=== PATIENT | female | born 1940 | race Caucasian/White ===

== ENCOUNTER 2017-03-20 03:46 | Inpatient (IN) | payer BC ==
[2017-03-20 04:35] LABS: ADD MAN DIFF? NO
[2017-03-20 04:37] LABS: BASOPHILS % 0.2 % (0.0-2.0); EOSINOPHILS # 0.3 10^3/ul (0.0-0.5); EOSINOPHILS % 3.6 % (0.0-7.0); HEMATOCRIT 29.9 % (37.0-47.0); HEMOGLOBIN 9.8 g/dl (12.0-16.0); LYMPHOCYTES # 1.3 10^3/ul (0.8-2.9); LYMPHOCYTES % 15.5 % (15.0-51.0); MEAN CORPUSCULAR HEMOGLOBIN 30.3 pg (29.0-33.0); MEAN CORPUSCULAR HGB CONC 32.8 g/dl (32.0-37.0); MEAN CORPUSCULAR VOLUME 92.6 fl (82.0-101.0); MEAN PLATELET VOLUME 10.3 fl (7.4-10.4); MONOCYTE # 0.5 10^3/ul (0.3-0.9); MONOCYTES % 6.7 % (0.0-11.0); NEUTROPHIL # 5.9 10^3/ul (1.6-7.5); NEUTROPHILS % 73.6 % (39.0-77.0); PLATELET COUNT 198 10^3/UL (140-415); RED BLOOD COUNT 3.23 10^6/ul (4.20-5.40)
[2017-03-20 04:37] LABS: WHITE BLOOD COUNT 8.1 10^3/ul (4.8-10.8)
[2017-03-20 04:55] LABS: ALANINE AMINOTRANSFERASE 42 IU/L (13-69); ALBUMIN/GLOBULIN RATIO 1.02; ALKALINE PHOSPHATASE 139 IU/L (42-121); ANION GAP 18 (8-16); ASPARTATE AMINO TRANSFERASE 28 IU/L (15-46); BILIRUBIN,INDIRECT 0.8 mg/dl (0-1.1); BILIRUBIN,TOTAL 0.8 mg/dl (0.2-1.3); BLOOD UREA NITROGEN 53 mg/dl (7-20); CALCIUM 9.6 mg/dl (8.4-10.2); CARBON DIOXIDE 24 mmol/L (21-31); CHLORIDE 103 mmol/L (97-110); CREATININE 2.59 mg/dl (0.44-1.00); GLUCOSE 138 mg/dl (70-220); POTASSIUM 4.9 mmol/L (3.5-5.1); SODIUM 140 mmol/L (135-144); TOTAL PROTEIN 7.9 g/dl (6.1-8.1)
[2017-03-20 05:07] LABS: B-TYPE NATRIURETIC PEPTIDE 14300 PG/ML (0-125); TROPONIN-I 0.076 ng/ml (0.00-0.12)
[2017-03-20] MEDS ORDERED: ALBUTEROL/IPRATROPIUM (NEB) 3 ML AMP HHN (06:30)
[2017-03-20] MEDS ORDERED: ALBUTEROL HFA 8 GM INHALER INH (06:30)
[2017-03-20] MEDS ORDERED: NACL 0.9% 3 ML SYG IV (06:30)
[2017-03-20] MEDS ORDERED: NITROGLYCERIN (SL) 0.4 MG TAB SL (06:30)
[2017-03-20] MEDS: FUROSEMIDE 20 MG INJ IV ×2 (07:35→21:55)
[2017-03-20] MEDS: PANTOPRAZOLE (EC) 40 MG TAB PO (07:45)
[2017-03-20] MEDS ORDERED: GLUCOSE GEL 15 GRAM TUBE PO (08:30)
[2017-03-20] MEDS ORDERED: GLUCOSE GEL 15 GRAM TUBE BUCCAL (08:30)
[2017-03-20] MEDS ORDERED: DEXTROSE 50% 50 ML SYRINGE IV ×2 (08:30)
[2017-03-20] MEDS ORDERED: GLUCAGON 1 MG INJ IM (08:30)
[2017-03-20 09:33] LABS: CREATINE KINASE 44 IU/L (23-200)
[2017-03-20 09:49] LABS: CK INDEX 2.3; CK-MB 1.03 ng/ml (0.0-2.4)
[2017-03-20] MEDS: INSULIN ASPART [NOVOLOG] 3 ML PEN SC ×3 (11:45→22:25)
[2017-03-20] MEDS: MULTIVITAMINS THERAPEUTIC TAB PO (12:10)
[2017-03-20] MEDS: AZELASTINE 0.05% 6 ML OPH BOTH EYES (12:12)
[2017-03-20] MEDS: FERROUS SULFATE (EC) 325 MG TAB PO ×3 (12:13→21:54)
[2017-03-20] MEDS: predniSONE 20 MG TAB PO (12:13)
[2017-03-20] MEDS: LOSARTAN 50 MG TAB PO (12:14)
[2017-03-20] MEDS: ASPIRIN (EC) 81 MG TAB PO (12:14)
[2017-03-20] MEDS: AMLODIPINE 5 MG TAB PO (12:15)
[2017-03-20] MEDS: ISOSORBIDE DINITRATE 10 MG TAB PO (12:15)
[2017-03-20] MEDS: SERTRALINE 50 MG TAB PO (12:16)
[2017-03-20] MEDS: LEVOFLOXACIN 500MG/D5W (PMX) 100 ML IVPB (12:23)
[2017-03-20 12:24] LABS: CREATINE KINASE 41 IU/L (23-200)
[2017-03-20] MEDS: HEPARIN 5,000 UNIT/0.5 ML VIAL SC ×2 (12:27→22:13)
[2017-03-20 12:36] LABS: CK INDEX 2.5; CK-MB 1.03 ng/ml (0.0-2.4); TROPONIN-I 0.082 ng/ml (0.00-0.12)
[2017-03-20] MEDS: CLOPIDOGREL 75 MG TAB PO (13:53)
[2017-03-20] MEDS: ALBUTEROL/IPRATROPIUM (NEB) 3 ML AMP HHN ×2 (14:00→20:00)
[2017-03-20] MEDS: INSULIN GLARGINE [LANtus] 3 ML PEN SC (22:29)
[2017-03-20] MEDS: ATORVASTATIN 40 MG TAB PO (23:19)
[2017-03-21] MEDS: ACCU-CHEK XX (02:10)
[2017-03-21 06:21] LABS: ADD MAN DIFF? NO
[2017-03-21 06:26] LABS: BASOPHILS % 0.2 % (0.0-2.0); HEMATOCRIT 24.1 % (37.0-47.0); LYMPHOCYTES # 0.6 10^3/ul (0.8-2.9); LYMPHOCYTES % 13.1 % (15.0-51.0); MEAN CORPUSCULAR HEMOGLOBIN 30.5 pg (29.0-33.0); MEAN CORPUSCULAR HGB CONC 33.2 g/dl (32.0-37.0); MEAN PLATELET VOLUME 11.3 fl (7.4-10.4); MONOCYTE # 0.4 10^3/ul (0.3-0.9); MONOCYTES % 8.4 % (0.0-11.0); NEUTROPHIL # 3.7 10^3/ul (1.6-7.5); NEUTROPHILS % 78.1 % (39.0-77.0); PLATELET COUNT 166 10^3/UL (140-415); RED BLOOD COUNT 2.62 10^6/ul (4.20-5.40); RED CELL DISTRIBUTION WIDTH 12.9 % (11.5-14.5)
[2017-03-21 06:26] LABS: WHITE BLOOD COUNT 4.7 10^3/ul (4.8-10.8)
[2017-03-21 06:58] LABS: ALANINE AMINOTRANSFERASE 30 IU/L (13-69); ALBUMIN 3.1 g/dl (3.3-4.9); ALBUMIN/GLOBULIN RATIO 0.93; ALKALINE PHOSPHATASE 85 IU/L (42-121); ANION GAP 16 (8-16); ASPARTATE AMINO TRANSFERASE 19 IU/L (15-46); BILIRUBIN,INDIRECT 0.7 mg/dl (0-1.1); BILIRUBIN,TOTAL 0.7 mg/dl (0.2-1.3); BLOOD UREA NITROGEN 59 mg/dl (7-20); CALCIUM 8.7 mg/dl (8.4-10.2); CARBON DIOXIDE 24 mmol/L (21-31); CHLORIDE 105 mmol/L (97-110); CREATININE 2.84 mg/dl (0.44-1.00); GLUCOSE 174 mg/dl (70-220); MAGNESIUM 2.1 mg/dl (1.7-2.5); POTASSIUM 4.7 mmol/L (3.5-5.1); SODIUM 140 mmol/L (135-144); TOTAL PROTEIN 6.4 g/dl (6.1-8.1)
[2017-03-21] MEDS: PANTOPRAZOLE (EC) 40 MG TAB PO (07:20)
[2017-03-21] MEDS: INSULIN ASPART [NOVOLOG] 3 ML PEN SC ×6 (07:35→21:55)
[2017-03-21] MEDS: LOSARTAN 50 MG TAB PO (08:33)
[2017-03-21] MEDS: FERROUS SULFATE (EC) 325 MG TAB PO ×3 (08:33→21:00)
[2017-03-21] MEDS: ASPIRIN (EC) 81 MG TAB PO (08:33)
[2017-03-21] MEDS: AZELASTINE 0.05% 6 ML OPH BOTH EYES (08:34)
[2017-03-21] MEDS: HEPARIN 5,000 UNIT/0.5 ML VIAL SC ×2 (08:36→21:05)
[2017-03-21] MEDS: predniSONE 20 MG TAB PO (10:14)
[2017-03-21] MEDS: FUROSEMIDE 20 MG INJ IV ×2 (10:14→21:00)
[2017-03-21] MEDS: CLOPIDOGREL 75 MG TAB PO (10:15)
[2017-03-21] MEDS: MULTIVITAMINS THERAPEUTIC TAB PO (10:15)
[2017-03-21] MEDS: AMLODIPINE 5 MG TAB PO (10:15)
[2017-03-21] MEDS: ISOSORBIDE MONONITRATE(SR)30 MG TAB PO (10:15)
[2017-03-21] MEDS: SERTRALINE 50 MG TAB PO (10:15)
[2017-03-21] MEDS: ACETAMINOPHEN 325 MG TAB PO (12:39)
[2017-03-21 15:55] LABS: HEMOGLOBIN 9.3 g/dl (12.0-16.0)
[2017-03-21] MEDS: ALBUTEROL/IPRATROPIUM (NEB) 3 ML AMP HHN (19:59)
[2017-03-21] MEDS: ATORVASTATIN 40 MG TAB PO (20:59)
[2017-03-21] MEDS: INSULIN GLARGINE [LANtus] 3 ML PEN SC (21:03)
[2017-03-21] MEDS: morphine 2 MG INJ IV (21:19)
[2017-03-22] MEDS: ACCU-CHEK XX ×2 (02:17→02:29)
[2017-03-22] MEDS: PANTOPRAZOLE (EC) 40 MG TAB PO (05:28)
[2017-03-22] MEDS: ALBUTEROL/IPRATROPIUM (NEB) 3 ML AMP HHN ×3 (07:58→19:33)
[2017-03-22] MEDS: LEVOFLOXACIN 500MG/D5W (PMX) 100 ML IVPB (08:11)
[2017-03-22] MEDS: AZELASTINE 0.05% 6 ML OPH BOTH EYES (08:11)
[2017-03-22] MEDS: MULTIVITAMINS THERAPEUTIC TAB PO (08:11)
[2017-03-22] MEDS: AMLODIPINE 5 MG TAB PO (08:11)
[2017-03-22] MEDS: CLOPIDOGREL 75 MG TAB PO (08:11)
[2017-03-22] MEDS: FERROUS SULFATE (EC) 325 MG TAB PO ×3 (08:11→20:40)
[2017-03-22] MEDS: SERTRALINE 50 MG TAB PO (08:12)
[2017-03-22] MEDS: FUROSEMIDE 20 MG INJ IV (08:12)
[2017-03-22] MEDS: ISOSORBIDE MONONITRATE(SR)30 MG TAB PO (08:12)
[2017-03-22] MEDS: ASPIRIN (EC) 81 MG TAB PO (08:12)
[2017-03-22] MEDS: HEPARIN 5,000 UNIT/0.5 ML VIAL SC ×2 (08:13→20:41)
[2017-03-22] MEDS: INSULIN ASPART [NOVOLOG] 3 ML PEN SC ×8 (08:18→21:15)
[2017-03-22] MEDS: predniSONE 20 MG TAB PO (08:18)
[2017-03-22] MEDS ORDERED: LOSARTAN 50 MG TAB PO ×2 (09:00)
[2017-03-22 09:40] LABS: ADD MAN DIFF? NO
[2017-03-22 09:44] LABS: WHITE BLOOD COUNT 6.3 10^3/ul (4.8-10.8)
[2017-03-22 09:44] LABS: BASOPHILS % 0.2 % (0.0-2.0); EOSINOPHILS % 0.2 % (0.0-7.0); HEMOGLOBIN 7.8 g/dl (12.0-16.0); LYMPHOCYTES # 1.3 10^3/ul (0.8-2.9); LYMPHOCYTES % 20.3 % (15.0-51.0); MEAN CORPUSCULAR HEMOGLOBIN 31.1 pg (29.0-33.0); MEAN CORPUSCULAR HGB CONC 33.9 g/dl (32.0-37.0); MEAN CORPUSCULAR VOLUME 91.6 fl (82.0-101.0); MEAN PLATELET VOLUME 11.4 fl (7.4-10.4); MONOCYTE # 0.5 10^3/ul (0.3-0.9); NEUTROPHIL # 4.5 10^3/ul (1.6-7.5); NEUTROPHILS % 71.1 % (39.0-77.0); PLATELET COUNT 170 10^3/UL (140-415); RED BLOOD COUNT 2.51 10^6/ul (4.20-5.40); RED CELL DISTRIBUTION WIDTH 12.7 % (11.5-14.5)
[2017-03-22 10:11] LABS: HDL CHOLESTEROL 42 mg/dl (33-92); LDL CHOLESTEROL,CALCULATED 115 mg/dl; TRIGLYCERIDES 65 mg/dl (0-149)
[2017-03-22 10:11] LABS: CHOLESTEROL 170 mg/dl (100-200)
[2017-03-22 10:16] LABS: TROPONIN-I 0.057 ng/ml (0.00-0.12)
[2017-03-22 10:31] LABS: ANION GAP 13 (8-16); BLOOD UREA NITROGEN 68 mg/dl (7-20); CALCIUM 8.5 mg/dl (8.4-10.2); CARBON DIOXIDE 23 mmol/L (21-31); CHLORIDE 104 mmol/L (97-110); CREATININE 2.74 mg/dl (0.44-1.00); GLUCOSE 134 mg/dl (70-220); MAGNESIUM 2.1 mg/dl (1.7-2.5); PHOSPHORUS 4.5 mg/dl (2.5-4.9); POTASSIUM 4.4 mmol/L (3.5-5.1); SODIUM 136 mmol/L (135-144)
[2017-03-22 11:08] LABS: IRON 83 ug/dl (35-150)
[2017-03-22 11:17] LABS: % IRON SATURATION 32 % SAT (22-52); TOTAL IRON BINDING CAPACITY 257 ug/dl (241-421)
[2017-03-22 12:02] LABS: HEMATOCRIT 26.8 % (37.0-47.0)
[2017-03-22] MEDS: FUROSEMIDE 20 MG TAB PO (17:06)
[2017-03-22] MEDS: ATORVASTATIN 40 MG TAB PO (20:40)
[2017-03-22] MEDS: INSULIN GLARGINE [LANtus] 3 ML PEN SC (20:46)
[2017-03-22 21:42] LABS: GLUCOSE 355 mg/dl (70-220)
[2017-03-23] MEDS: GLUCOSE GEL 15 GRAM TUBE PO (00:06)
[2017-03-23] MEDS: ACCU-CHEK XX ×2 (01:26)
[2017-03-23] MEDS: PANTOPRAZOLE (EC) 40 MG TAB PO (05:58)
[2017-03-23] MEDS: FUROSEMIDE 20 MG TAB PO ×2 (06:00→17:21)
[2017-03-23] MEDS: INSULIN ASPART [NOVOLOG] 3 ML PEN SC ×7 (07:49→21:20)
[2017-03-23 08:14] LABS: ADD MAN DIFF? NO
[2017-03-23] MEDS: SERTRALINE 50 MG TAB PO (08:14)
[2017-03-23] MEDS: ISOSORBIDE MONONITRATE(SR)30 MG TAB PO (08:14)
[2017-03-23] MEDS: CLOPIDOGREL 75 MG TAB PO (08:14)
[2017-03-23] MEDS: ASPIRIN (EC) 81 MG TAB PO (08:14)
[2017-03-23] MEDS: AZELASTINE 0.05% 6 ML OPH BOTH EYES (08:14)
[2017-03-23] MEDS: MULTIVITAMINS THERAPEUTIC TAB PO (08:16)
[2017-03-23] MEDS: predniSONE 20 MG TAB PO (08:16)
[2017-03-23 08:18] LABS: BASOPHILS % 0.1 % (0.0-2.0); EOSINOPHILS # 0.1 10^3/ul (0.0-0.5); EOSINOPHILS % 0.9 % (0.0-7.0); HEMOGLOBIN 8.5 g/dl (12.0-16.0); LYMPHOCYTES % 26.5 % (15.0-51.0); MEAN CORPUSCULAR HEMOGLOBIN 30.7 pg (29.0-33.0); MEAN CORPUSCULAR HGB CONC 32.7 g/dl (32.0-37.0); MEAN CORPUSCULAR VOLUME 93.9 fl (82.0-101.0); MONOCYTE # 0.7 10^3/ul (0.3-0.9); NEUTROPHIL # 4.8 10^3/ul (1.6-7.5); NEUTROPHILS % 63.1 % (39.0-77.0); PLATELET COUNT 204 10^3/UL (140-415); RED BLOOD COUNT 2.77 10^6/ul (4.20-5.40); RED CELL DISTRIBUTION WIDTH 12.8 % (11.5-14.5)
[2017-03-23 08:18] LABS: WHITE BLOOD COUNT 7.7 10^3/ul (4.8-10.8)
[2017-03-23] MEDS: HEPARIN 5,000 UNIT/0.5 ML VIAL SC ×2 (08:19→21:18)
[2017-03-23] MEDS: FERROUS SULFATE (EC) 325 MG TAB PO ×3 (08:25→21:15)
[2017-03-23 08:47] LABS: ANION GAP 16 (8-16); BLOOD UREA NITROGEN 82 mg/dl (7-20); CALCIUM 8.8 mg/dl (8.4-10.2); CARBON DIOXIDE 23 mmol/L (21-31); CHLORIDE 106 mmol/L (97-110); MAGNESIUM 2.1 mg/dl (1.7-2.5); PHOSPHORUS 4.5 mg/dl (2.5-4.9); POTASSIUM 4.1 mmol/L (3.5-5.1); SODIUM 141 mmol/L (135-144)
[2017-03-23] MEDS: ALBUTEROL/IPRATROPIUM (NEB) 3 ML AMP HHN ×3 (08:52→20:35)
[2017-03-23 09:01] LABS: GLUCOSE 40 mg/dl (70-220)
[2017-03-23] MEDS: AMLODIPINE 5 MG TAB PO (12:21)
[2017-03-23] MEDS: DOCUSATE SODIUM 100 MG CAP PO (21:13)
[2017-03-23] MEDS: ATORVASTATIN 40 MG TAB PO (21:13)
[2017-03-23] MEDS: INSULIN GLARGINE [LANtus] 3 ML PEN SC (21:14)
[2017-03-23] MEDS: SALMETEROL/FLUTICASONE 250/50 INHA INH (21:18)
[2017-03-24] MEDS: INSULIN ASPART [NOVOLOG] 3 ML PEN SC ×9 (01:57→21:30)
[2017-03-24] MEDS: ACCU-CHEK XX (02:05)
[2017-03-24] MEDS: PANTOPRAZOLE (EC) 40 MG TAB PO (05:42)
[2017-03-24] MEDS: FUROSEMIDE 20 MG TAB PO ×2 (05:43→17:42)
[2017-03-24] MEDS: ALBUTEROL/IPRATROPIUM (NEB) 3 ML AMP HHN ×3 (07:50→19:28)
[2017-03-24 08:41] LABS: ADD MAN DIFF? NO
[2017-03-24 08:47] LABS: BASOPHILS % 0.2 % (0.0-2.0); EOSINOPHILS % 0.5 % (0.0-7.0); HEMATOCRIT 24.8 % (37.0-47.0); HEMOGLOBIN 8.4 g/dl (12.0-16.0); LYMPHOCYTES # 1.5 10^3/ul (0.8-2.9); LYMPHOCYTES % 23.7 % (15.0-51.0); MEAN CORPUSCULAR HGB CONC 33.9 g/dl (32.0-37.0); MEAN CORPUSCULAR VOLUME 91.5 fl (82.0-101.0); MEAN PLATELET VOLUME 11.6 fl (7.4-10.4); MONOCYTE # 0.7 10^3/ul (0.3-0.9); MONOCYTES % 10.4 % (0.0-11.0); NEUTROPHILS % 64.6 % (39.0-77.0); PLATELET COUNT 192 10^3/UL (140-415); RED BLOOD COUNT 2.71 10^6/ul (4.20-5.40); RED CELL DISTRIBUTION WIDTH 13.1 % (11.5-14.5)
[2017-03-24 08:47] LABS: WHITE BLOOD COUNT 6.3 10^3/ul (4.8-10.8)
[2017-03-24] MEDS: FERROUS SULFATE (EC) 325 MG TAB PO ×3 (09:05→20:33)
[2017-03-24] MEDS: SERTRALINE 50 MG TAB PO (09:05)
[2017-03-24] MEDS: ASPIRIN (EC) 81 MG TAB PO (09:05)
[2017-03-24] MEDS: DOCUSATE SODIUM 100 MG CAP PO ×2 (09:05→20:32)
[2017-03-24] MEDS: CLOPIDOGREL 75 MG TAB PO (09:05)
[2017-03-24] MEDS: AZELASTINE 0.05% 6 ML OPH BOTH EYES (09:05)
[2017-03-24] MEDS: AMLODIPINE 5 MG TAB PO (09:06)
[2017-03-24] MEDS: predniSONE 20 MG TAB PO (09:06)
[2017-03-24] MEDS: MULTIVITAMINS THERAPEUTIC TAB PO (09:06)
[2017-03-24] MEDS: SALMETEROL/FLUTICASONE 250/50 INHA INH ×2 (09:06→20:31)
[2017-03-24] MEDS: ISOSORBIDE MONONITRATE(SR)30 MG TAB PO (09:06)
[2017-03-24] MEDS: HEPARIN 5,000 UNIT/0.5 ML VIAL SC ×2 (09:10→20:58)
[2017-03-24] MEDS: LEVOFLOXACIN 250MG/D5W (PMX) 50 ML IVPB (09:22)
[2017-03-24 10:10] LABS: ANION GAP 15 (8-16); BLOOD UREA NITROGEN 94 mg/dl (7-20); CARBON DIOXIDE 22 mmol/L (21-31); CHLORIDE 106 mmol/L (97-110); CREATININE 3.38 mg/dl (0.44-1.00); GLUCOSE 142 mg/dl (70-220); MAGNESIUM 2.1 mg/dl (1.7-2.5); PHOSPHORUS 4.1 mg/dl (2.5-4.9); POTASSIUM 4.1 mmol/L (3.5-5.1); SODIUM 139 mmol/L (135-144)
[2017-03-24] MEDS ORDERED: POLYETHYLENE GLYCOL 17 GM PACKET PO ×2 (15:30→16:00)
[2017-03-24] MEDS: LACTULOSE 30ML CUP PO (16:00)
[2017-03-24] MEDS: ATORVASTATIN 40 MG TAB PO (20:33)
[2017-03-24] MEDS: INSULIN GLARGINE [LANtus] 3 ML PEN SC (20:56)
[2017-03-25] MEDS: ACCU-CHEK XX (01:23)
[2017-03-25 04:51] LABS: SODIUM,URINE RANDOM 66 mmol/L (30-90)
[2017-03-25 04:52] LABS: CREATININE,URINE RANDOM 40.22 mg/dl (20-320); PROTEIN/CREAT RATIO 4.92 RATIO
[2017-03-25 06:10] LABS: ADD MAN DIFF? NO
[2017-03-25 06:12] LABS: EOSINOPHILS % 0.2 % (0.0-7.0); HEMATOCRIT 24.8 % (37.0-47.0); HEMOGLOBIN 8.3 g/dl (12.0-16.0); LYMPHOCYTES # 1.8 10^3/ul (0.8-2.9); LYMPHOCYTES % 27.9 % (15.0-51.0); MEAN CORPUSCULAR HEMOGLOBIN 31.1 pg (29.0-33.0); MEAN CORPUSCULAR HGB CONC 33.5 g/dl (32.0-37.0); MEAN CORPUSCULAR VOLUME 92.9 fl (82.0-101.0); MEAN PLATELET VOLUME 10.7 fl (7.4-10.4); MONOCYTE # 0.6 10^3/ul (0.3-0.9); MONOCYTES % 9.7 % (0.0-11.0); NEUTROPHILS % 61.7 % (39.0-77.0); PLATELET COUNT 199 10^3/UL (140-415); RED BLOOD COUNT 2.67 10^6/ul (4.20-5.40)
[2017-03-25 06:12] LABS: WHITE BLOOD COUNT 6.4 10^3/ul (4.8-10.8)
[2017-03-25] MEDS: PANTOPRAZOLE (EC) 40 MG TAB PO (06:38)
[2017-03-25] MEDS: FUROSEMIDE 20 MG TAB PO ×2 (06:38→17:31)
[2017-03-25 07:01] LABS: MAGNESIUM 2.2 mg/dl (1.7-2.5)
[2017-03-25 07:01] LABS: PHOSPHORUS 4.2 mg/dl (2.5-4.9)
[2017-03-25 07:03] LABS: ALANINE AMINOTRANSFERASE 29 IU/L (13-69); ALBUMIN 3.1 g/dl (3.3-4.9); ALKALINE PHOSPHATASE 74 IU/L (42-121); ANION GAP 14 (8-16); ASPARTATE AMINO TRANSFERASE 24 IU/L (15-46); BILIRUBIN,INDIRECT 0.2 mg/dl (0-1.1); BILIRUBIN,TOTAL 0.2 mg/dl (0.2-1.3); BLOOD UREA NITROGEN 97 mg/dl (7-20); CALCIUM 8.7 mg/dl (8.4-10.2); CARBON DIOXIDE 21 mmol/L (21-31); CHLORIDE 107 mmol/L (97-110); CREATININE 3.07 mg/dl (0.44-1.00); GLUCOSE 93 mg/dl (70-220); POTASSIUM 3.9 mmol/L (3.5-5.1); SODIUM 138 mmol/L (135-144); TOTAL PROTEIN 6.2 g/dl (6.1-8.1)
[2017-03-25] MEDS: INSULIN ASPART [NOVOLOG] 3 ML PEN SC ×7 (07:54→21:00)
[2017-03-25] MEDS: ALBUTEROL/IPRATROPIUM (NEB) 3 ML AMP HHN ×2 (08:08→13:41)
[2017-03-25] MEDS: AZELASTINE 0.05% 6 ML OPH BOTH EYES (09:00)
[2017-03-25] MEDS: SERTRALINE 50 MG TAB PO (09:00)
[2017-03-25] MEDS: predniSONE 10 MG TAB PO (09:00)
[2017-03-25] MEDS: FERROUS SULFATE (EC) 325 MG TAB PO ×3 (09:05→20:50)
[2017-03-25] MEDS: AMLODIPINE 5 MG TAB PO (09:05)
[2017-03-25] MEDS: CLOPIDOGREL 75 MG TAB PO (09:05)
[2017-03-25] MEDS: ISOSORBIDE MONONITRATE(SR)30 MG TAB PO (09:05)
[2017-03-25] MEDS: DOCUSATE SODIUM 100 MG CAP PO ×2 (09:05→20:49)
[2017-03-25] MEDS: MULTIVITAMINS THERAPEUTIC TAB PO (09:05)
[2017-03-25] MEDS: HEPARIN 5,000 UNIT/0.5 ML VIAL SC ×2 (09:07→20:53)
[2017-03-25] MEDS: ASPIRIN (EC) 81 MG TAB PO (09:08)
[2017-03-25] MEDS: SALMETEROL/FLUTICASONE 250/50 INHA INH ×2 (09:10→21:08)
[2017-03-25] MEDS: GLUCOSE GEL 15 GRAM TUBE PO (13:13)
[2017-03-25] MEDS: LEVOFLOXACIN 250 MG TAB PO (17:30)
[2017-03-25] MEDS: ATORVASTATIN 40 MG TAB PO (20:50)
[2017-03-25] MEDS: INSULIN GLARGINE [LANtus] 3 ML PEN SC (20:58)
[2017-03-25] MEDS: LACTOBACILLUS RHAMNOSUS CAP PO (21:08)
[2017-03-26] MEDS: ACCU-CHEK XX (02:00)
[2017-03-26] MEDS: PANTOPRAZOLE (EC) 40 MG TAB PO (05:31)
[2017-03-26] MEDS: FUROSEMIDE 20 MG TAB PO ×2 (05:32→18:14)
[2017-03-26 08:29] LABS: ADD MAN DIFF? NO
[2017-03-26] MEDS: MULTIVITAMINS THERAPEUTIC TAB PO (08:47)
[2017-03-26] MEDS: DOCUSATE SODIUM 100 MG CAP PO ×2 (08:47→20:42)
[2017-03-26] MEDS: FAMOTIDINE 20 MG TAB PO (08:47)
[2017-03-26] MEDS: FERROUS SULFATE (EC) 325 MG TAB PO ×3 (08:47→20:42)
[2017-03-26] MEDS: CLOPIDOGREL 75 MG TAB PO (08:48)
[2017-03-26] MEDS: predniSONE 10 MG TAB PO (08:48)
[2017-03-26] MEDS: LACTOBACILLUS RHAMNOSUS CAP PO ×2 (08:48→20:42)
[2017-03-26] MEDS: ASPIRIN (EC) 81 MG TAB PO (08:48)
[2017-03-26] MEDS: ISOSORBIDE MONONITRATE(SR)30 MG TAB PO (08:49)
[2017-03-26] MEDS: AMLODIPINE 5 MG TAB PO (08:50)
[2017-03-26] MEDS: HEPARIN 5,000 UNIT/0.5 ML VIAL SC (08:51)
[2017-03-26 08:52] LABS: BASOPHILS % 0.1 % (0.0-2.0); EOSINOPHILS # 0.2 10^3/ul (0.0-0.5); EOSINOPHILS % 3.1 % (0.0-7.0); HEMATOCRIT 26.9 % (37.0-47.0); HEMOGLOBIN 9.1 g/dl (12.0-16.0); LYMPHOCYTES # 1.7 10^3/ul (0.8-2.9); LYMPHOCYTES % 23.4 % (15.0-51.0); MEAN CORPUSCULAR HEMOGLOBIN 31.2 pg (29.0-33.0); MEAN CORPUSCULAR HGB CONC 33.8 g/dl (32.0-37.0); MEAN CORPUSCULAR VOLUME 92.1 fl (82.0-101.0); MEAN PLATELET VOLUME 11.1 fl (7.4-10.4); MONOCYTE # 0.6 10^3/ul (0.3-0.9); MONOCYTES % 8.8 % (0.0-11.0); NEUTROPHIL # 4.5 10^3/ul (1.6-7.5); NEUTROPHILS % 64.2 % (39.0-77.0); PLATELET COUNT 231 10^3/UL (140-415); RED BLOOD COUNT 2.92 10^6/ul (4.20-5.40); RED CELL DISTRIBUTION WIDTH 13.3 % (11.5-14.5)
[2017-03-26 08:57] LABS: INR 0.96; PROTIME 12.9 Sec (11.9-14.9)
[2017-03-26] MEDS: SALMETEROL/FLUTICASONE 250/50 INHA INH ×2 (09:00→20:41)
[2017-03-26] MEDS: AZELASTINE 0.05% 6 ML OPH BOTH EYES (09:00)
[2017-03-26] MEDS: INSULIN ASPART [NOVOLOG] 3 ML PEN SC ×8 (09:03→20:50)
[2017-03-26 10:28] LABS: ALANINE AMINOTRANSFERASE 28 IU/L (13-69); ALBUMIN 3.3 g/dl (3.3-4.9); ALBUMIN/GLOBULIN RATIO 0.97; ALKALINE PHOSPHATASE 73 IU/L (42-121); ANION GAP 13 (8-16); ASPARTATE AMINO TRANSFERASE 21 IU/L (15-46); BILIRUBIN,INDIRECT 0.3 mg/dl (0-1.1); BILIRUBIN,TOTAL 0.3 mg/dl (0.2-1.3); BLOOD UREA NITROGEN 99 mg/dl (7-20); CALCIUM 9.2 mg/dl (8.4-10.2); CARBON DIOXIDE 24 mmol/L (21-31); CHLORIDE 106 mmol/L (97-110); CREATININE 3.17 mg/dl (0.44-1.00); GLUCOSE 140 mg/dl (70-220); MAGNESIUM 2.1 mg/dl (1.7-2.5); PHOSPHORUS 4.8 mg/dl (2.5-4.9); POTASSIUM 4.4 mmol/L (3.5-5.1); SODIUM 139 mmol/L (135-144); TOTAL PROTEIN 6.7 g/dl (6.1-8.1)
[2017-03-26] MEDS: ACETAMINOPHEN 325 MG TAB PO (11:32)
[2017-03-26] MEDS: SERTRALINE 50 MG TAB PO (11:32)
[2017-03-26] MEDS: ATORVASTATIN 40 MG TAB PO (20:42)
[2017-03-26] MEDS: INSULIN GLARGINE [LANtus] 3 ML PEN SC (20:44)
[2017-03-27] MEDS: ACCU-CHEK XX (02:00)
[2017-03-27] MEDS: FUROSEMIDE 20 MG TAB PO (05:41)
[2017-03-27] MEDS: PANTOPRAZOLE (EC) 40 MG TAB PO (05:53)
[2017-03-27 08:42] LABS: ADD MAN DIFF? NO; HAAIG REFLEX REFLEX FILED
[2017-03-27] MEDS: INSULIN ASPART [NOVOLOG] 3 ML PEN SC ×7 (08:50→21:05)
[2017-03-27] MEDS: SALMETEROL/FLUTICASONE 250/50 INHA INH ×2 (08:52→21:09)
[2017-03-27] MEDS: LACTOBACILLUS RHAMNOSUS CAP PO ×2 (08:53→21:09)
[2017-03-27] MEDS: DOCUSATE SODIUM 100 MG CAP PO ×2 (08:53→21:11)
[2017-03-27] MEDS: AZELASTINE 0.05% 6 ML OPH BOTH EYES (08:53)
[2017-03-27] MEDS: MULTIVITAMINS THERAPEUTIC TAB PO (08:53)
[2017-03-27] MEDS: FERROUS SULFATE (EC) 325 MG TAB PO ×3 (08:53→21:10)
[2017-03-27] MEDS: FAMOTIDINE 20 MG TAB PO (08:53)
[2017-03-27] MEDS: ISOSORBIDE MONONITRATE(SR)30 MG TAB PO (08:54)
[2017-03-27] MEDS: AMLODIPINE 5 MG TAB PO (08:54)
[2017-03-27] MEDS: SERTRALINE 50 MG TAB PO (08:54)
[2017-03-27 08:55] LABS: WHITE BLOOD COUNT 7.6 10^3/ul (4.8-10.8)
[2017-03-27 08:55] LABS: BASOPHILS % 0.1 % (0.0-2.0); EOSINOPHILS # 0.2 10^3/ul (0.0-0.5); EOSINOPHILS % 2.9 % (0.0-7.0); HEMATOCRIT 26.4 % (37.0-47.0); HEMOGLOBIN 8.9 g/dl (12.0-16.0); LYMPHOCYTES # 1.8 10^3/ul (0.8-2.9); LYMPHOCYTES % 23.7 % (15.0-51.0); MEAN CORPUSCULAR HEMOGLOBIN 30.8 pg (29.0-33.0); MEAN CORPUSCULAR HGB CONC 33.7 g/dl (32.0-37.0); MEAN CORPUSCULAR VOLUME 91.3 fl (82.0-101.0); MEAN PLATELET VOLUME 10.8 fl (7.4-10.4); MONOCYTE # 0.8 10^3/ul (0.3-0.9); MONOCYTES % 10.2 % (0.0-11.0); NEUTROPHIL # 4.7 10^3/ul (1.6-7.5); NEUTROPHILS % 62.7 % (39.0-77.0); PLATELET COUNT 225 10^3/UL (140-415); RED BLOOD COUNT 2.89 10^6/ul (4.20-5.40)
[2017-03-27 09:12] LABS: INR 0.94; PROTIME 12.7 Sec (11.9-14.9)
[2017-03-27 09:13] LABS: ALANINE AMINOTRANSFERASE 25 IU/L (13-69); ALBUMIN 3.3 g/dl (3.3-4.9); ALKALINE PHOSPHATASE 76 IU/L (42-121); ANION GAP 14 (8-16); ASPARTATE AMINO TRANSFERASE 17 IU/L (15-46); BILIRUBIN,INDIRECT 0.2 mg/dl (0-1.1); BILIRUBIN,TOTAL 0.2 mg/dl (0.2-1.3); BLOOD UREA NITROGEN 104 mg/dl (7-20); CARBON DIOXIDE 23 mmol/L (21-31); CHLORIDE 102 mmol/L (97-110); CREATININE 3.03 mg/dl (0.44-1.00); GLUCOSE 148 mg/dl (70-220); PARTIAL THROMBOPLASTIN TIME 25.5 Sec (25.0-35.0); PHOSPHORUS 4.7 mg/dl (2.5-4.9); POTASSIUM 4.4 mmol/L (3.5-5.1); SODIUM 135 mmol/L (135-144); TOTAL PROTEIN 6.6 g/dl (6.1-8.1)
[2017-03-27 09:39] LABS: MAGNESIUM 2.2 mg/dl (1.7-2.5)
[2017-03-27 09:43] LABS: HEPATITIS B SURFACE ANTIGEN NEGATIVE (NEGATIVE)
[2017-03-27 10:00] LABS: HEPATITIS B CORE ANTIBODY NEGATIVE (NEGATIVE); HEPATITIS C VIRAL ANTIBODY NEGATIVE (NEGATIVE)
[2017-03-27] MEDS: LEVOFLOXACIN 250 MG TAB PO (18:01)
[2017-03-27] MEDS: INSULIN GLARGINE [LANtus] 3 ML PEN SC (21:06)
[2017-03-27] MEDS: ATORVASTATIN 40 MG TAB PO (21:09)
[2017-03-28] MEDS: ACCU-CHEK XX (02:00)
[2017-03-28] MEDS: PANTOPRAZOLE (EC) 40 MG TAB PO (06:05)
[2017-03-28 07:23] LABS: ADD MAN DIFF? NO
[2017-03-28 07:28] LABS: BASOPHILS % 0.1 % (0.0-2.0); EOSINOPHILS # 0.3 10^3/ul (0.0-0.5); EOSINOPHILS % 3.9 % (0.0-7.0); HEMATOCRIT 26.7 % (37.0-47.0); HEMOGLOBIN 8.8 g/dl (12.0-16.0); LYMPHOCYTES # 1.3 10^3/ul (0.8-2.9); LYMPHOCYTES % 15.6 % (15.0-51.0); MEAN CORPUSCULAR HEMOGLOBIN 30.3 pg (29.0-33.0); MEAN CORPUSCULAR VOLUME 92.1 fl (82.0-101.0); MEAN PLATELET VOLUME 10.7 fl (7.4-10.4); MONOCYTE # 0.8 10^3/ul (0.3-0.9); MONOCYTES % 9.8 % (0.0-11.0); NEUTROPHIL # 5.9 10^3/ul (1.6-7.5); PLATELET COUNT 197 10^3/UL (140-415); RED CELL DISTRIBUTION WIDTH 13.2 % (11.5-14.5)
[2017-03-28 07:28] LABS: WHITE BLOOD COUNT 8.4 10^3/ul (4.8-10.8)
[2017-03-28] MEDS: INSULIN ASPART [NOVOLOG] 3 ML PEN SC ×7 (08:00→21:38)
[2017-03-28 08:30] LABS: ANION GAP 15 (8-16); BLOOD UREA NITROGEN 104 mg/dl (7-20); CALCIUM 8.9 mg/dl (8.4-10.2); CARBON DIOXIDE 23 mmol/L (21-31); CHLORIDE 103 mmol/L (97-110); CREATININE 2.91 mg/dl (0.44-1.00); GLUCOSE 247 mg/dl (70-220); POTASSIUM 5.1 mmol/L (3.5-5.1); SODIUM 136 mmol/L (135-144)
[2017-03-28] MEDS: AZELASTINE 0.05% 6 ML OPH BOTH EYES (08:57)
[2017-03-28] MEDS: HEPARIN 5,000 UNIT/0.5 ML VIAL SC ×2 (08:57→21:36)
[2017-03-28] MEDS: SALMETEROL/FLUTICASONE 250/50 INHA INH ×2 (08:57→21:42)
[2017-03-28] MEDS: LACTOBACILLUS RHAMNOSUS CAP PO ×2 (09:00→21:32)
[2017-03-28] MEDS: ISOSORBIDE MONONITRATE(SR)30 MG TAB PO (09:00)
[2017-03-28] MEDS: DOCUSATE SODIUM 100 MG CAP PO ×2 (09:00→21:23)
[2017-03-28] MEDS: FERROUS SULFATE (EC) 325 MG TAB PO ×3 (09:00→21:23)
[2017-03-28] MEDS: SERTRALINE 50 MG TAB PO (09:00)
[2017-03-28] MEDS: MULTIVITAMINS THERAPEUTIC TAB PO (09:00)
[2017-03-28] MEDS: FAMOTIDINE 20 MG TAB PO (09:00)
[2017-03-28] MEDS ORDERED: HEPARIN 1000 UNITS/ML 10 ML INJ (10:01)
[2017-03-28] MEDS ORDERED: IODIXANOL LOCM 100 ML BTL (10:01)
[2017-03-28] MEDS ORDERED: SOD CHLORIDE 0.9% 500 ML (10:01)
[2017-03-28] MEDS ORDERED: HEPARIN 1000 UNITS/NS (A-LINE) 1,000 ML (10:01)
[2017-03-28] MEDS ORDERED: FENTAnyl 50 MCG/ML VIAL (10:09)
[2017-03-28] MEDS ORDERED: MIDAZOLAM 1 MG/ML 2 ML INJ (10:09)
[2017-03-28] MEDS ORDERED: ALBUMIN HUMAN 25% 50 ML IV (15:30)
[2017-03-28] MEDS: MANNITOL 25% 50 ML IV (16:48)
[2017-03-28] MEDS: HEPARIN 1000 UNITS/ML 10 ML INJ CATHETER (16:50)
[2017-03-28] MEDS: ATORVASTATIN 40 MG TAB PO (21:22)
[2017-03-28] MEDS: INSULIN GLARGINE [LANtus] 3 ML PEN SC (21:37)
[2017-03-29] MEDS: ACCU-CHEK XX (02:00)
[2017-03-29] MEDS: PANTOPRAZOLE (EC) 40 MG TAB PO (06:39)
[2017-03-29] MEDS: INSULIN ASPART [NOVOLOG] 3 ML PEN SC ×7 (08:00→20:56)
[2017-03-29] MEDS: ISOSORBIDE MONONITRATE(SR)30 MG TAB PO (08:32)
[2017-03-29] MEDS: AZELASTINE 0.05% 6 ML OPH BOTH EYES (08:34)
[2017-03-29] MEDS: SALMETEROL/FLUTICASONE 250/50 INHA INH ×2 (08:34→20:47)
[2017-03-29] MEDS: HEPARIN 5,000 UNIT/0.5 ML VIAL SC ×2 (08:38→20:51)
[2017-03-29] MEDS: SERTRALINE 50 MG TAB PO (08:38)
[2017-03-29] MEDS: DOCUSATE SODIUM 100 MG CAP PO ×2 (08:38→20:47)
[2017-03-29] MEDS: MULTIVITAMINS THERAPEUTIC TAB PO (08:38)
[2017-03-29] MEDS: FAMOTIDINE 20 MG TAB PO (08:38)
[2017-03-29] MEDS: LACTOBACILLUS RHAMNOSUS CAP PO ×2 (08:39→20:47)
[2017-03-29] MEDS: FERROUS SULFATE (EC) 325 MG TAB PO ×3 (08:39→20:47)
[2017-03-29] MEDS: ASPIRIN (EC) 81 MG TAB PO (08:39)
[2017-03-29] MEDS ORDERED: CLOPIDOGREL 75 MG TAB PO (09:00)
[2017-03-29 09:01] LABS: ADD MAN DIFF? NO; BASOPHILS % 0.1 % (0.0-2.0); EOSINOPHILS # 0.3 10^3/ul (0.0-0.5); EOSINOPHILS % 4.6 % (0.0-7.0); HEMOGLOBIN 9.1 g/dl (12.0-16.0); LYMPHOCYTES # 1.4 10^3/ul (0.8-2.9); LYMPHOCYTES % 19.9 % (15.0-51.0); MEAN CORPUSCULAR HEMOGLOBIN 31.1 pg (29.0-33.0); MEAN CORPUSCULAR HGB CONC 33.7 g/dl (32.0-37.0); MEAN CORPUSCULAR VOLUME 92.2 fl (82.0-101.0); MEAN PLATELET VOLUME 10.8 fl (7.4-10.4); MONOCYTE # 0.8 10^3/ul (0.3-0.9); NEUTROPHIL # 4.5 10^3/ul (1.6-7.5); PLATELET COUNT 184 10^3/UL (140-415); RED BLOOD COUNT 2.93 10^6/ul (4.20-5.40); RED CELL DISTRIBUTION WIDTH 13.4 % (11.5-14.5)
[2017-03-29 09:33] LABS: ANION GAP 15 (8-16); BLOOD UREA NITROGEN 54 mg/dl (7-20); CALCIUM 8.3 mg/dl (8.4-10.2); CARBON DIOXIDE 28 mmol/L (21-31); CHLORIDE 99 mmol/L (97-110); GLUCOSE 127 mg/dl (70-220); SODIUM 138 mmol/L (135-144)
[2017-03-29 13:47] LABS: HEMOGLOBIN A1C 7.1 % (0-5.9)
[2017-03-29] MEDS: LEVOFLOXACIN 250 MG TAB PO (17:38)
[2017-03-29] MEDS: EPOETIN 3000 UNITS/1 ML INJ (ESRD) SC (17:39)
[2017-03-29] MEDS: ATORVASTATIN 40 MG TAB PO (20:47)
[2017-03-29] MEDS: INSULIN GLARGINE [LANtus] 3 ML PEN SC (20:52)
[2017-03-29] MEDS: ACETAMINOPHEN 325 MG TAB PO (20:58)
[2017-03-30] MEDS: ZOLPIDEM 5 MG TAB PO
[2017-03-30] MEDS: SOD CHLORIDE 0.9% 500 ML IV (01:27)
[2017-03-30] MEDS: ACCU-CHEK XX (02:00)
[2017-03-30 06:19] LABS: ADD MAN DIFF? NO
[2017-03-30] MEDS: PANTOPRAZOLE (EC) 40 MG TAB PO (06:27)
[2017-03-30 06:32] LABS: BASOPHILS % 0.2 % (0.0-2.0); EOSINOPHILS # 0.3 10^3/ul (0.0-0.5); EOSINOPHILS % 4.4 % (0.0-7.0); HEMOGLOBIN 8.1 g/dl (12.0-16.0); LYMPHOCYTES # 1.6 10^3/ul (0.8-2.9); LYMPHOCYTES % 25.7 % (15.0-51.0); MEAN CORPUSCULAR HEMOGLOBIN 30.8 pg (29.0-33.0); MEAN CORPUSCULAR HGB CONC 32.4 g/dl (32.0-37.0); MEAN CORPUSCULAR VOLUME 95.1 fl (82.0-101.0); MONOCYTE # 0.9 10^3/ul (0.3-0.9); MONOCYTES % 13.6 % (0.0-11.0); NEUTROPHIL # 3.6 10^3/ul (1.6-7.5); NEUTROPHILS % 55.9 % (39.0-77.0); PLATELET COUNT 160 10^3/UL (140-415); RED BLOOD COUNT 2.63 10^6/ul (4.20-5.40); RED CELL DISTRIBUTION WIDTH 13.4 % (11.5-14.5)
[2017-03-30 06:32] LABS: WHITE BLOOD COUNT 6.3 10^3/ul (4.8-10.8)
[2017-03-30 07:06] LABS: ANION GAP 10 (8-16); BLOOD UREA NITROGEN 40 mg/dl (7-20); CALCIUM 8.1 mg/dl (8.4-10.2); CARBON DIOXIDE 29 mmol/L (21-31); CHLORIDE 106 mmol/L (97-110); CREATININE 2.25 mg/dl (0.44-1.00); GLUCOSE 68 mg/dl (70-220); POTASSIUM 4.3 mmol/L (3.5-5.1); SODIUM 141 mmol/L (135-144)
[2017-03-30] MEDS: INSULIN ASPART [NOVOLOG] 3 ML PEN SC ×8 (07:55→22:27)
[2017-03-30] MEDS: GLUCOSE GEL 15 GRAM TUBE PO (08:00)
[2017-03-30] MEDS: AZELASTINE 0.05% 6 ML OPH BOTH EYES (08:37)
[2017-03-30] MEDS: SALMETEROL/FLUTICASONE 250/50 INHA INH ×2 (08:37→22:06)
[2017-03-30] MEDS: MULTIVITAMINS THERAPEUTIC TAB PO (08:38)
[2017-03-30] MEDS: SERTRALINE 50 MG TAB PO (08:38)
[2017-03-30] MEDS: LACTOBACILLUS RHAMNOSUS CAP PO ×2 (08:39→22:00)
[2017-03-30] MEDS: DOCUSATE SODIUM 100 MG CAP PO ×2 (08:39→22:00)
[2017-03-30] MEDS: FERROUS SULFATE (EC) 325 MG TAB PO ×3 (08:39→22:02)
[2017-03-30] MEDS: FAMOTIDINE 20 MG TAB PO (08:39)
[2017-03-30] MEDS: ISOSORBIDE MONONITRATE(SR)30 MG TAB PO (08:44)
[2017-03-30] MEDS: ASPIRIN (EC) 81 MG TAB PO (08:44)
[2017-03-30] MEDS: HEPARIN 5,000 UNIT/0.5 ML VIAL SC ×2 (08:50→22:03)
[2017-03-30] MEDS: MIDODRINE 5 MG TAB PO (11:55)
[2017-03-30] MEDS ORDERED: INSULIN GLARGINE [LANtus] 3 ML PEN SC (21:00)
[2017-03-30] MEDS: ATORVASTATIN 40 MG TAB PO (22:02)
[2017-03-30] MEDS: INSULIN GLARGINE [LANtus] 3 ML PEN SC (22:04)
[2017-03-31] MEDS: ACCU-CHEK XX (02:00)
[2017-03-31 06:18] LABS: ADD MAN DIFF? NO
[2017-03-31] MEDS: PANTOPRAZOLE (EC) 40 MG TAB PO (06:18)
[2017-03-31 06:40] LABS: BASOPHILS % 0.2 % (0.0-2.0); EOSINOPHILS # 0.3 10^3/ul (0.0-0.5); EOSINOPHILS % 4.5 % (0.0-7.0); HEMATOCRIT 23.5 % (37.0-47.0); HEMOGLOBIN 7.8 g/dl (12.0-16.0); LYMPHOCYTES # 1.4 10^3/ul (0.8-2.9); LYMPHOCYTES % 23.8 % (15.0-51.0); MEAN CORPUSCULAR HEMOGLOBIN 31.7 pg (29.0-33.0); MEAN CORPUSCULAR HGB CONC 33.2 g/dl (32.0-37.0); MEAN CORPUSCULAR VOLUME 95.5 fl (82.0-101.0); MEAN PLATELET VOLUME 11.1 fl (7.4-10.4); MONOCYTE # 0.7 10^3/ul (0.3-0.9); MONOCYTES % 12.2 % (0.0-11.0); NEUTROPHIL # 3.4 10^3/ul (1.6-7.5); NEUTROPHILS % 59.1 % (39.0-77.0); PLATELET COUNT 155 10^3/UL (140-415); RED BLOOD COUNT 2.46 10^6/ul (4.20-5.40); RED CELL DISTRIBUTION WIDTH 13.5 % (11.5-14.5)
[2017-03-31 06:40] LABS: WHITE BLOOD COUNT 5.7 10^3/ul (4.8-10.8)
[2017-03-31 07:38] LABS: ANION GAP 14 (8-16); BLOOD UREA NITROGEN 48 mg/dl (7-20); CALCIUM 8.2 mg/dl (8.4-10.2); CARBON DIOXIDE 26 mmol/L (21-31); CHLORIDE 105 mmol/L (97-110); CREATININE 2.39 mg/dl (0.44-1.00); GLUCOSE 127 mg/dl (70-220); POTASSIUM 4.3 mmol/L (3.5-5.1); SODIUM 141 mmol/L (135-144)
[2017-03-31] MEDS: INSULIN ASPART [NOVOLOG] 3 ML PEN SC ×7 (08:00→20:47)
[2017-03-31] MEDS: AZELASTINE 0.05% 6 ML OPH BOTH EYES (08:35)
[2017-03-31] MEDS: MULTIVITAMINS THERAPEUTIC TAB PO (08:35)
[2017-03-31] MEDS: DOCUSATE SODIUM 100 MG CAP PO ×2 (08:36→20:41)
[2017-03-31] MEDS: FAMOTIDINE 20 MG TAB PO (08:36)
[2017-03-31] MEDS: ASPIRIN (EC) 81 MG TAB PO (08:36)
[2017-03-31] MEDS: SERTRALINE 50 MG TAB PO (08:36)
[2017-03-31] MEDS: LACTOBACILLUS RHAMNOSUS CAP PO ×2 (08:36→20:41)
[2017-03-31] MEDS: ISOSORBIDE MONONITRATE(SR)30 MG TAB PO (08:37)
[2017-03-31] MEDS: FERROUS SULFATE (EC) 325 MG TAB PO ×3 (08:37→20:41)
[2017-03-31] MEDS: SALMETEROL/FLUTICASONE 250/50 INHA INH ×2 (08:37→20:42)
[2017-03-31] MEDS: hydrALAzine 20 MG INJ IV (08:38)
[2017-03-31] MEDS: HEPARIN 5,000 UNIT/0.5 ML VIAL SC ×2 (08:47→20:48)
[2017-03-31] MEDS: LEVOFLOXACIN 250 MG TAB PO (17:40)
[2017-03-31] MEDS: ATORVASTATIN 40 MG TAB PO (20:41)
[2017-03-31] MEDS: INSULIN GLARGINE [LANtus] 3 ML PEN SC (20:48)
[2017-04-01] MEDS: ACCU-CHEK XX (02:00)
[2017-04-01] MEDS: PANTOPRAZOLE (EC) 40 MG TAB PO (05:59)
[2017-04-01 06:43] LABS: ADD MAN DIFF? NO
[2017-04-01 06:51] LABS: BASOPHILS % 0.3 % (0.0-2.0); EOSINOPHILS # 0.2 10^3/ul (0.0-0.5); EOSINOPHILS % 3.6 % (0.0-7.0); HEMATOCRIT 24.6 % (37.0-47.0); HEMOGLOBIN 8.1 g/dl (12.0-16.0); LYMPHOCYTES # 1.5 10^3/ul (0.8-2.9); LYMPHOCYTES % 24.9 % (15.0-51.0); MEAN CORPUSCULAR HEMOGLOBIN 31.3 pg (29.0-33.0); MEAN CORPUSCULAR HGB CONC 32.9 g/dl (32.0-37.0); MEAN PLATELET VOLUME 10.6 fl (7.4-10.4); MONOCYTE # 0.6 10^3/ul (0.3-0.9); MONOCYTES % 9.4 % (0.0-11.0); NEUTROPHIL # 3.6 10^3/ul (1.6-7.5); NEUTROPHILS % 61.5 % (39.0-77.0); PLATELET COUNT 154 10^3/UL (140-415); RED BLOOD COUNT 2.59 10^6/ul (4.20-5.40); RED CELL DISTRIBUTION WIDTH 13.4 % (11.5-14.5)
[2017-04-01 06:51] LABS: WHITE BLOOD COUNT 5.9 10^3/ul (4.8-10.8)
[2017-04-01] MEDS: ACETAMINOPHEN 325 MG TAB PO (07:53)
[2017-04-01] MEDS: INSULIN ASPART [NOVOLOG] 3 ML PEN SC ×7 (07:58→21:00)
[2017-04-01 08:05] LABS: ANION GAP 12 (8-16); BLOOD UREA NITROGEN 29 mg/dl (7-20); CALCIUM 8.2 mg/dl (8.4-10.2); CARBON DIOXIDE 28 mmol/L (21-31); CHLORIDE 103 mmol/L (97-110); CREATININE 1.78 mg/dl (0.44-1.00); GLUCOSE 150 mg/dl (70-220); SODIUM 139 mmol/L (135-144)
[2017-04-01] MEDS: LACTOBACILLUS RHAMNOSUS CAP PO ×2 (08:30→21:16)
[2017-04-01] MEDS: DOCUSATE SODIUM 100 MG CAP PO ×2 (08:30→21:16)
[2017-04-01] MEDS: HEPARIN 5,000 UNIT/0.5 ML VIAL SC ×2 (08:30→21:13)
[2017-04-01] MEDS: ISOSORBIDE MONONITRATE(SR)30 MG TAB PO (08:31)
[2017-04-01] MEDS: AZELASTINE 0.05% 6 ML OPH BOTH EYES (08:32)
[2017-04-01] MEDS: MULTIVITAMINS THERAPEUTIC TAB PO (08:32)
[2017-04-01] MEDS: SERTRALINE 50 MG TAB PO (08:32)
[2017-04-01] MEDS: ASPIRIN (EC) 81 MG TAB PO (08:32)
[2017-04-01] MEDS: FAMOTIDINE 20 MG TAB PO (08:32)
[2017-04-01] MEDS: FERROUS SULFATE (EC) 325 MG TAB PO ×3 (08:32→21:14)
[2017-04-01] MEDS: SALMETEROL/FLUTICASONE 250/50 INHA INH ×2 (08:34→21:09)
[2017-04-01] MEDS: EPOETIN 3000 UNITS/1 ML INJ (ESRD) SC (17:39)
[2017-04-01] MEDS: INSULIN GLARGINE [LANtus] 3 ML PEN SC (21:13)
[2017-04-01] MEDS: ATORVASTATIN 40 MG TAB PO (21:14)
[2017-04-02] MEDS: ACCU-CHEK XX (01:19)
[2017-04-02 05:15] LABS: ADD MAN DIFF? NO
[2017-04-02 05:21] LABS: BASOPHILS % 0.4 % (0.0-2.0); EOSINOPHILS # 0.2 10^3/ul (0.0-0.5); EOSINOPHILS % 3.7 % (0.0-7.0); HEMATOCRIT 23.6 % (37.0-47.0); HEMOGLOBIN 7.8 g/dl (12.0-16.0); LYMPHOCYTES # 1.3 10^3/ul (0.8-2.9); LYMPHOCYTES % 23.4 % (15.0-51.0); MEAN CORPUSCULAR HEMOGLOBIN 31.2 pg (29.0-33.0); MEAN CORPUSCULAR HGB CONC 33.1 g/dl (32.0-37.0); MEAN CORPUSCULAR VOLUME 94.4 fl (82.0-101.0); MEAN PLATELET VOLUME 10.6 fl (7.4-10.4); MONOCYTE # 0.5 10^3/ul (0.3-0.9); MONOCYTES % 9.3 % (0.0-11.0); NEUTROPHIL # 3.5 10^3/ul (1.6-7.5); NEUTROPHILS % 62.8 % (39.0-77.0); PLATELET COUNT 157 10^3/UL (140-415); RED CELL DISTRIBUTION WIDTH 13.4 % (11.5-14.5)
[2017-04-02 05:21] LABS: WHITE BLOOD COUNT 5.6 10^3/ul (4.8-10.8)
[2017-04-02] MEDS: PANTOPRAZOLE (EC) 40 MG TAB PO (05:51)
[2017-04-02 05:53] LABS: ANION GAP 12 (8-16); BLOOD UREA NITROGEN 40 mg/dl (7-20); CALCIUM 9.3 mg/dl (8.4-10.2); CARBON DIOXIDE 29 mmol/L (21-31); CHLORIDE 101 mmol/L (97-110); CREATININE 2.35 mg/dl (0.44-1.00); GLUCOSE 176 mg/dl (70-220); MAGNESIUM 2.2 mg/dl (1.7-2.5); PHOSPHORUS 4.6 mg/dl (2.5-4.9); POTASSIUM 4.3 mmol/L (3.5-5.1); SODIUM 138 mmol/L (135-144)
[2017-04-02] MEDS: INSULIN ASPART [NOVOLOG] 3 ML PEN SC ×7 (08:21→21:00)
[2017-04-02] MEDS: HEPARIN 5,000 UNIT/0.5 ML VIAL SC ×2 (08:22→21:02)
[2017-04-02] MEDS: AZELASTINE 0.05% 6 ML OPH BOTH EYES (08:28)
[2017-04-02] MEDS: SALMETEROL/FLUTICASONE 250/50 INHA INH ×2 (08:29→20:56)
[2017-04-02] MEDS: DOCUSATE SODIUM 100 MG CAP PO ×2 (08:30→20:56)
[2017-04-02] MEDS: LACTOBACILLUS RHAMNOSUS CAP PO ×2 (08:30→20:56)
[2017-04-02] MEDS: FERROUS SULFATE (EC) 325 MG TAB PO ×3 (08:30→20:56)
[2017-04-02] MEDS: ISOSORBIDE MONONITRATE(SR)30 MG TAB PO (08:30)
[2017-04-02] MEDS: FAMOTIDINE 20 MG TAB PO (08:30)
[2017-04-02] MEDS: ASPIRIN (EC) 81 MG TAB PO (08:30)
[2017-04-02] MEDS: LISINOPRIL 5 MG TAB PO (08:31)
[2017-04-02] MEDS: SERTRALINE 50 MG TAB PO (08:31)
[2017-04-02] MEDS: MULTIVITAMINS THERAPEUTIC TAB PO (08:31)
[2017-04-02] MEDS: ATORVASTATIN 40 MG TAB PO (20:56)
[2017-04-02] MEDS: INSULIN GLARGINE [LANtus] 3 ML PEN SC (21:02)
[2017-04-03] MEDS: ACCU-CHEK XX (01:57)
[2017-04-03] MEDS: PANTOPRAZOLE (EC) 40 MG TAB PO (05:46)
[2017-04-03 05:57] LABS: ADD MAN DIFF? NO
[2017-04-03 06:03] LABS: WHITE BLOOD COUNT 5.6 10^3/ul (4.8-10.8)
[2017-04-03 06:03] LABS: BASOPHILS % 0.2 % (0.0-2.0); EOSINOPHILS # 0.2 10^3/ul (0.0-0.5); EOSINOPHILS % 3.9 % (0.0-7.0); HEMATOCRIT 25.2 % (37.0-47.0); HEMOGLOBIN 8.2 g/dl (12.0-16.0); LYMPHOCYTES # 1.5 10^3/ul (0.8-2.9); LYMPHOCYTES % 26.8 % (15.0-51.0); MEAN CORPUSCULAR HEMOGLOBIN 31.1 pg (29.0-33.0); MEAN CORPUSCULAR HGB CONC 32.5 g/dl (32.0-37.0); MEAN CORPUSCULAR VOLUME 95.5 fl (82.0-101.0); MEAN PLATELET VOLUME 10.8 fl (7.4-10.4); MONOCYTE # 0.6 10^3/ul (0.3-0.9); MONOCYTES % 10.2 % (0.0-11.0); NEUTROPHIL # 3.3 10^3/ul (1.6-7.5); NEUTROPHILS % 58.5 % (39.0-77.0); PLATELET COUNT 154 10^3/UL (140-415); RED BLOOD COUNT 2.64 10^6/ul (4.20-5.40); RED CELL DISTRIBUTION WIDTH 13.5 % (11.5-14.5)
[2017-04-03 06:34] LABS: ANION GAP 14 (8-16); BLOOD UREA NITROGEN 32 mg/dl (7-20); CALCIUM 8.8 mg/dl (8.4-10.2); CARBON DIOXIDE 31 mmol/L (21-31); CHLORIDE 101 mmol/L (97-110); CREATININE 2.55 mg/dl (0.44-1.00); GLUCOSE 86 mg/dl (70-220); MAGNESIUM 2.1 mg/dl (1.7-2.5); PHOSPHORUS 4.5 mg/dl (2.5-4.9); POTASSIUM 4.4 mmol/L (3.5-5.1); SODIUM 142 mmol/L (135-144)
[2017-04-03] MEDS: INSULIN ASPART [NOVOLOG] 3 ML PEN SC ×7 (08:00→21:00)
[2017-04-03] MEDS: ISOSORBIDE MONONITRATE(SR)30 MG TAB PO (08:29)
[2017-04-03] MEDS: LISINOPRIL 5 MG TAB PO (08:56)
[2017-04-03] MEDS: AZELASTINE 0.05% 6 ML OPH BOTH EYES (09:00)
[2017-04-03] MEDS: SALMETEROL/FLUTICASONE 250/50 INHA INH ×2 (09:00→20:55)
[2017-04-03] MEDS: SERTRALINE 50 MG TAB PO (09:01)
[2017-04-03] MEDS: LACTOBACILLUS RHAMNOSUS CAP PO ×2 (09:01→20:56)
[2017-04-03] MEDS: MULTIVITAMINS THERAPEUTIC TAB PO (09:01)
[2017-04-03] MEDS: ASPIRIN (EC) 81 MG TAB PO (09:01)
[2017-04-03] MEDS: DOCUSATE SODIUM 100 MG CAP PO ×2 (09:01→21:02)
[2017-04-03] MEDS: FERROUS SULFATE (EC) 325 MG TAB PO ×3 (09:01→20:56)
[2017-04-03] MEDS: FAMOTIDINE 20 MG TAB PO (09:02)
[2017-04-03] MEDS: HEPARIN 5,000 UNIT/0.5 ML VIAL SC ×2 (09:11→20:58)
[2017-04-03] MEDS: EPOETIN 3000 UNITS/1 ML INJ (ESRD) SC (17:26)
[2017-04-03] MEDS: ATORVASTATIN 40 MG TAB PO (20:55)
[2017-04-03] MEDS: INSULIN GLARGINE [LANtus] 3 ML PEN SC (20:58)
[2017-04-04] MEDS: ACCU-CHEK XX (02:00)
[2017-04-04] MEDS: PANTOPRAZOLE (EC) 40 MG TAB PO (05:53)
[2017-04-04 06:38] LABS: ADD MAN DIFF? NO
[2017-04-04 06:43] LABS: WHITE BLOOD COUNT 5.6 10^3/ul (4.8-10.8)
[2017-04-04 06:43] LABS: BASOPHILS % 0.2 % (0.0-2.0); EOSINOPHILS # 0.2 10^3/ul (0.0-0.5); EOSINOPHILS % 4.3 % (0.0-7.0); HEMOGLOBIN 8.2 g/dl (12.0-16.0); LYMPHOCYTES # 1.4 10^3/ul (0.8-2.9); LYMPHOCYTES % 25.4 % (15.0-51.0); MEAN CORPUSCULAR HEMOGLOBIN 31.3 pg (29.0-33.0); MEAN CORPUSCULAR HGB CONC 32.8 g/dl (32.0-37.0); MEAN CORPUSCULAR VOLUME 95.4 fl (82.0-101.0); MEAN PLATELET VOLUME 10.3 fl (7.4-10.4); MONOCYTE # 0.5 10^3/ul (0.3-0.9); MONOCYTES % 9.4 % (0.0-11.0); NEUTROPHIL # 3.4 10^3/ul (1.6-7.5); NEUTROPHILS % 60.3 % (39.0-77.0); PLATELET COUNT 150 10^3/UL (140-415); RED BLOOD COUNT 2.62 10^6/ul (4.20-5.40); RED CELL DISTRIBUTION WIDTH 13.2 % (11.5-14.5)
[2017-04-04 07:31] LABS: ANION GAP 17 (8-16); BLOOD UREA NITROGEN 50 mg/dl (7-20); CALCIUM 8.5 mg/dl (8.4-10.2); CARBON DIOXIDE 25 mmol/L (21-31); CHLORIDE 105 mmol/L (97-110); CREATININE 2.45 mg/dl (0.44-1.00); GLUCOSE 138 mg/dl (70-220); MAGNESIUM 2.2 mg/dl (1.7-2.5); PHOSPHORUS 5.1 mg/dl (2.5-4.9); POTASSIUM 4.6 mmol/L (3.5-5.1); SODIUM 142 mmol/L (135-144)
[2017-04-04] MEDS: INSULIN ASPART [NOVOLOG] 3 ML PEN SC ×7 (08:25→21:00)
[2017-04-04] MEDS: DOCUSATE SODIUM 100 MG CAP PO ×2 (08:28→21:01)
[2017-04-04] MEDS: HEPARIN 5,000 UNIT/0.5 ML VIAL SC ×2 (08:28→21:00)
[2017-04-04] MEDS: SERTRALINE 50 MG TAB PO (08:28)
[2017-04-04] MEDS: ASPIRIN (EC) 81 MG TAB PO (08:28)
[2017-04-04] MEDS: FAMOTIDINE 20 MG TAB PO (08:28)
[2017-04-04] MEDS: LACTOBACILLUS RHAMNOSUS CAP PO ×2 (08:29→21:00)
[2017-04-04] MEDS: LISINOPRIL 5 MG TAB PO (08:29)
[2017-04-04] MEDS: FERROUS SULFATE (EC) 325 MG TAB PO ×3 (08:29→21:01)
[2017-04-04] MEDS: MULTIVITAMINS THERAPEUTIC TAB PO (08:29)
[2017-04-04] MEDS: ISOSORBIDE MONONITRATE(SR)30 MG TAB PO (08:30)
[2017-04-04] MEDS: AZELASTINE 0.05% 6 ML OPH BOTH EYES (08:30)
[2017-04-04] MEDS: SALMETEROL/FLUTICASONE 250/50 INHA INH ×2 (08:30→21:03)
[2017-04-04] MEDS: ACETAMINOPHEN 325 MG TAB PO (16:44)
[2017-04-04] MEDS: ATORVASTATIN 40 MG TAB PO (21:00)
[2017-04-04] MEDS: INSULIN GLARGINE [LANtus] 3 ML PEN SC (21:10)
[2017-04-05] MEDS: ACCU-CHEK XX (02:00)
[2017-04-05] MEDS: PANTOPRAZOLE (EC) 40 MG TAB PO (06:02)
[2017-04-05] MEDS: INSULIN ASPART [NOVOLOG] 3 ML PEN SC ×7 (07:44→20:24)
[2017-04-05] MEDS: ACETAMINOPHEN 325 MG TAB PO (08:25)
[2017-04-05] MEDS: AZELASTINE 0.05% 6 ML OPH BOTH EYES (08:26)
[2017-04-05] MEDS: SALMETEROL/FLUTICASONE 250/50 INHA INH ×2 (08:26→20:24)
[2017-04-05] MEDS: FAMOTIDINE 20 MG TAB PO (08:27)
[2017-04-05] MEDS: SERTRALINE 50 MG TAB PO (08:27)
[2017-04-05] MEDS: DOCUSATE SODIUM 100 MG CAP PO ×2 (08:27→20:19)
[2017-04-05] MEDS: MULTIVITAMINS THERAPEUTIC TAB PO (08:27)
[2017-04-05] MEDS: FERROUS SULFATE (EC) 325 MG TAB PO ×3 (08:27→20:19)
[2017-04-05] MEDS: ASPIRIN (EC) 81 MG TAB PO (08:27)
[2017-04-05] MEDS: LACTOBACILLUS RHAMNOSUS CAP PO ×2 (08:27→20:19)
[2017-04-05] MEDS: LISINOPRIL 5 MG TAB PO (08:28)
[2017-04-05] MEDS: ISOSORBIDE MONONITRATE(SR)30 MG TAB PO (08:28)
[2017-04-05] MEDS: HEPARIN 5,000 UNIT/0.5 ML VIAL SC ×2 (08:29→20:21)
[2017-04-05] MEDS: ATORVASTATIN 40 MG TAB PO (20:19)
[2017-04-05] MEDS: INSULIN GLARGINE [LANtus] 3 ML PEN SC (20:22)
[2017-04-05] MEDS: EPOETIN 3000 UNITS/1 ML INJ (ESRD) SC (20:28)
[2017-04-05] MEDS: morphine 2 MG INJ IV (22:15)
[2017-04-06] MEDS: ACCU-CHEK XX (02:21)
[2017-04-06] MEDS: morphine 2 MG INJ IV (02:43)
[2017-04-06] MEDS: PANTOPRAZOLE (EC) 40 MG TAB PO (06:14)
[2017-04-06] MEDS: INSULIN ASPART [NOVOLOG] 3 ML PEN SC ×7 (08:18→20:36)
[2017-04-06] MEDS: SERTRALINE 50 MG TAB PO (08:33)
[2017-04-06] MEDS: SALMETEROL/FLUTICASONE 250/50 INHA INH ×2 (08:33→20:49)
[2017-04-06] MEDS: FAMOTIDINE 20 MG TAB PO (08:33)
[2017-04-06] MEDS: AZELASTINE 0.05% 6 ML OPH BOTH EYES (08:33)
[2017-04-06] MEDS: FERROUS SULFATE (EC) 325 MG TAB PO ×3 (08:33→20:41)
[2017-04-06] MEDS: LACTOBACILLUS RHAMNOSUS CAP PO ×2 (08:33→20:41)
[2017-04-06] MEDS: DOCUSATE SODIUM 100 MG CAP PO ×2 (08:34→20:39)
[2017-04-06] MEDS: ONDANSETRON 4 MG INJ IV (08:34)
[2017-04-06] MEDS: ISOSORBIDE MONONITRATE(SR)30 MG TAB PO (08:34)
[2017-04-06] MEDS: MULTIVITAMINS THERAPEUTIC TAB PO (08:34)
[2017-04-06] MEDS: ASPIRIN (EC) 81 MG TAB PO (08:34)
[2017-04-06] MEDS: LISINOPRIL 5 MG TAB PO (08:34)
[2017-04-06] MEDS: HEPARIN 5,000 UNIT/0.5 ML VIAL SC ×2 (08:35→20:37)
[2017-04-06] MEDS: INSULIN GLARGINE [LANtus] 3 ML PEN SC (20:35)
[2017-04-06] MEDS: ATORVASTATIN 40 MG TAB PO (20:41)
[2017-04-07] MEDS: ACCU-CHEK XX (02:00)
[2017-04-07] MEDS: PANTOPRAZOLE (EC) 40 MG TAB PO (05:14)
[2017-04-07] MEDS: FERROUS SULFATE (EC) 325 MG TAB PO ×2 (08:27→12:09)
[2017-04-07] MEDS: DOCUSATE SODIUM 100 MG CAP PO (08:27)
[2017-04-07] MEDS: SERTRALINE 50 MG TAB PO (08:28)
[2017-04-07] MEDS: LACTOBACILLUS RHAMNOSUS CAP PO (08:28)
[2017-04-07] MEDS: ASPIRIN (EC) 81 MG TAB PO (08:28)
[2017-04-07] MEDS: MULTIVITAMINS THERAPEUTIC TAB PO (08:28)
[2017-04-07] MEDS: FAMOTIDINE 20 MG TAB PO (08:28)
[2017-04-07] MEDS: AZELASTINE 0.05% 6 ML OPH BOTH EYES (08:28)
[2017-04-07] MEDS: SALMETEROL/FLUTICASONE 250/50 INHA INH (08:28)
[2017-04-07] MEDS: ISOSORBIDE MONONITRATE(SR)30 MG TAB PO (08:29)
[2017-04-07] MEDS: LISINOPRIL 5 MG TAB PO (08:30)
[2017-04-07] MEDS: HEPARIN 5,000 UNIT/0.5 ML VIAL SC (08:31)
[2017-04-07] MEDS: INSULIN ASPART [NOVOLOG] 3 ML PEN SC ×6 (08:32→17:40)
[2017-04-07] MEDS: morphine 2 MG INJ IV (10:29)
[2017-04-07] MEDS: ONDANSETRON 4 MG INJ IV (10:29)
== END 2017-04-07 20:29 | disposition home or self-care (01) | DRG 291 ==
LOC: MS4 03-22 04:22 → PP2 04-01 00:05 → E/R 03:46 → MS3 05:54
PROC: 05HM33Z Insertion of Infusion Device into Right Internal Jugular Vein, Percutaneous Approach (ICD-10-PCS; principal; 2017-03-28 09:57)
PROC: 5A1D70Z Performance of Urinary Filtration, Intermittent, Less than 6 Hours Per Day (ICD-10-PCS; 2017-03-28 09:57)
PROC: 5A1D70Z Performance of Urinary Filtration, Intermittent, Less than 6 Hours Per Day (ICD-10-PCS; 2017-03-28 09:57)
PROC: 5A1D70Z Performance of Urinary Filtration, Intermittent, Less than 6 Hours Per Day (ICD-10-PCS; 2017-03-28 09:57)
PROC: 5A1D70Z Performance of Urinary Filtration, Intermittent, Less than 6 Hours Per Day (ICD-10-PCS; 2017-03-28 09:57)
PROC: 5A1D70Z Performance of Urinary Filtration, Intermittent, Less than 6 Hours Per Day (ICD-10-PCS; 2017-03-28 09:57)
DX: I13.2 Hypertensive heart and chronic kidney disease with heart failure and with stage 5 chronic kidney disease, or end stage renal disease (principal); I50.23 Acute on chronic systolic (congestive) heart failure; N17.9 Acute kidney failure, unspecified; I42.9 Cardiomyopathy, unspecified; E11.21 Type 2 diabetes mellitus with diabetic nephropathy; N18.6 End stage renal disease; E11.22 Type 2 diabetes mellitus with diabetic chronic kidney disease; D63.8 Anemia in other chronic diseases classified elsewhere; Z99.2 Dependence on renal dialysis; E78.5 Hyperlipidemia, unspecified; I08.0 Rheumatic disorders of both mitral and aortic valves
CPT/HCPCS: 36415; 71010; 71020; 80048; 80053; 80061; 81003; 82550; 82553; 82570; 82728; 82947; 82962; 83036; 83540; 83735; 83880; 84100; 84155; 84300; 84443; 84484; 85014; 85018; 85025; 85610; 85730; 86704; 86709; 86803; 87340; 87400; 90935; 93005; 94640; 94664; 96372; 96374; 97116; 97162; 97165; 97535; 99285-25; J1940

== ENCOUNTER 2017-04-22 05:23 | Inpatient (IN) | payer BC ==
[2017-04-22 06:49] LABS: ADD MAN DIFF? NO
[2017-04-22 06:56] LABS: WHITE BLOOD COUNT 6.2 10^3/ul (4.8-10.8)
[2017-04-22 06:56] LABS: BASOPHILS % 0.2 % (0.0-2.0); EOSINOPHILS # 0.1 10^3/ul (0.0-0.5); EOSINOPHILS % 1.8 % (0.0-7.0); HEMATOCRIT 30.9 % (37.0-47.0); HEMOGLOBIN 10.1 g/dl (12.0-16.0); LYMPHOCYTES # 1.1 10^3/ul (0.8-2.9); LYMPHOCYTES % 17.4 % (15.0-51.0); MEAN CORPUSCULAR HEMOGLOBIN 32.1 pg (29.0-33.0); MEAN CORPUSCULAR HGB CONC 32.7 g/dl (32.0-37.0); MEAN CORPUSCULAR VOLUME 98.1 fl (82.0-101.0); MEAN PLATELET VOLUME 10.6 fl (7.4-10.4); MONOCYTE # 0.5 10^3/ul (0.3-0.9); MONOCYTES % 8.1 % (0.0-11.0); NEUTROPHIL # 4.5 10^3/ul (1.6-7.5); NEUTROPHILS % 72.2 % (39.0-77.0); PLATELET COUNT 195 10^3/UL (140-415); RED BLOOD COUNT 3.15 10^6/ul (4.20-5.40); RED CELL DISTRIBUTION WIDTH 16.3 % (11.5-14.5)
[2017-04-22 07:12] LABS: ANION GAP 14 (8-16); BLOOD UREA NITROGEN 27 mg/dl (7-20); CALCIUM 9.4 mg/dl (8.4-10.2); CARBON DIOXIDE 27 mmol/L (21-31); CHLORIDE 101 mmol/L (97-110); CREATININE 1.98 mg/dl (0.44-1.00); GLUCOSE 148 mg/dl (70-220); POTASSIUM 4.3 mmol/L (3.5-5.1); SODIUM 138 mmol/L (135-144)
[2017-04-22 07:24] LABS: TROPONIN-I 0.038 ng/ml (0.00-0.12)
[2017-04-22 07:30] LABS: INR 0.91; PROTIME 12.3 Sec (11.9-14.9)
[2017-04-22 07:31] LABS: PARTIAL THROMBOPLASTIN TIME 29.1 Sec (25.0-35.0)
[2017-04-22] MEDS: ASPIRIN 325 MG TAB PO (07:59)
[2017-04-22] MEDS: NITROGLYCERIN (SL) 0.4 MG TAB SL (07:59)
[2017-04-22] MEDS: FUROSEMIDE 40 MG INJ IV ×2 (08:00→17:39)
[2017-04-22] MEDS ORDERED: ACETAMINOPHEN 325 MG TAB PO (09:00)
[2017-04-22] MEDS ORDERED: ONDANSETRON 4 MG INJ IV (09:00)
[2017-04-22] MEDS ORDERED: NITROGLYCERIN 0.3 MG SL (14:30)
[2017-04-22] MEDS ORDERED: GLUCOSE GEL 15 GRAM TUBE PO ×2 (15:30)
[2017-04-22] MEDS ORDERED: DEXTROSE 50% 50 ML SYRINGE IV ×2 (15:30)
[2017-04-22] MEDS ORDERED: GLUCAGON 1 MG INJ IM (15:30)
[2017-04-22] MEDS ORDERED: GLUCOSE GEL 15 GRAM TUBE BUCCAL (15:30)
[2017-04-22] MEDS: DICLOFENAC SODIUM 1% GEL 100 GM TUBE TP ×2 (16:32→21:47)
[2017-04-22 17:47] LABS: CREATINE KINASE 30 IU/L (23-200)
[2017-04-22 17:59] LABS: CK INDEX 1.8; CK-MB 0.54 ng/ml (0.0-2.4); TROPONIN-I 0.037 ng/ml (0.00-0.12)
[2017-04-22] MEDS ORDERED: NON-FORMULARY/PATIENT OWN MED (Sitagliptin Phos/Metformin HCl (Janumet 50-500 mg Tablet) 1 PO (21:00)
[2017-04-22] MEDS: ATORVASTATIN 40 MG TAB PO (21:46)
[2017-04-22] MEDS: FERROUS SULFATE (EC) 325 MG TAB PO (21:46)
[2017-04-22] MEDS: INSULIN GLARGINE [LANtus] 3 ML PEN SC (21:48)
[2017-04-22] MEDS: GUAIFENESIN/CODEINE 5ML CUP PO (22:44)
[2017-04-23 00:06] LABS: CREATINE KINASE 29 IU/L (23-200)
[2017-04-23 00:19] LABS: CK-MB 0.58 ng/ml (0.0-2.4); TROPONIN-I 0.043 ng/ml (0.00-0.12)
[2017-04-23] MEDS: ACCU-CHEK XX (02:57)
[2017-04-23] MEDS: FUROSEMIDE 40 MG INJ IV ×2 (06:44→17:28)
[2017-04-23] MEDS ORDERED: metFORMIN 500 MG TAB PO (08:00)
[2017-04-23] MEDS: INSULIN ASPART [NOVOLOG] 3 ML PEN SC ×4 (08:00→22:18)
[2017-04-23 08:31] LABS: ADD MAN DIFF? NO
[2017-04-23 08:35] LABS: BASOPHILS % 0.2 % (0.0-2.0); EOSINOPHILS # 0.1 10^3/ul (0.0-0.5); EOSINOPHILS % 2.4 % (0.0-7.0); HEMOGLOBIN 9.9 g/dl (12.0-16.0); LYMPHOCYTES # 1.5 10^3/ul (0.8-2.9); LYMPHOCYTES % 28.1 % (15.0-51.0); MEAN CORPUSCULAR HEMOGLOBIN 32.4 pg (29.0-33.0); MEAN PLATELET VOLUME 10.7 fl (7.4-10.4); MONOCYTE # 0.5 10^3/ul (0.3-0.9); MONOCYTES % 9.9 % (0.0-11.0); NEUTROPHIL # 3.2 10^3/ul (1.6-7.5); NEUTROPHILS % 59.2 % (39.0-77.0); PLATELET COUNT 203 10^3/UL (140-415); RED BLOOD COUNT 3.06 10^6/ul (4.20-5.40); RED CELL DISTRIBUTION WIDTH 16.4 % (11.5-14.5)
[2017-04-23 08:35] LABS: WHITE BLOOD COUNT 5.4 10^3/ul (4.8-10.8)
[2017-04-23] MEDS: AZELASTINE 0.05% 6 ML OPH BOTH EYES (08:42)
[2017-04-23] MEDS: FERROUS SULFATE (EC) 325 MG TAB PO ×3 (08:42→22:12)
[2017-04-23] MEDS: LINAGLIPTIN 5 MG TABLET PO (08:43)
[2017-04-23] MEDS: ISOSORBIDE MONONITRATE(SR)30 MG TAB PO (08:43)
[2017-04-23] MEDS: ASPIRIN (EC) 81 MG TAB PO (08:43)
[2017-04-23] MEDS: DICLOFENAC SODIUM 1% GEL 100 GM TUBE TP ×4 (08:44→22:12)
[2017-04-23] MEDS: LISINOPRIL 5 MG TAB PO (08:44)
[2017-04-23 08:55] LABS: ALBUMIN 3.7 g/dl (3.3-4.9); ANION GAP 14 (8-16); BLOOD UREA NITROGEN 38 mg/dl (7-20); CALCIUM 9.4 mg/dl (8.4-10.2); CARBON DIOXIDE 30 mmol/L (21-31); CHLORIDE 101 mmol/L (97-110); CREATININE 2.18 mg/dl (0.44-1.00); GLUCOSE 53 mg/dl (70-220); MAGNESIUM 1.9 mg/dl (1.7-2.5); PHOSPHORUS 4.2 mg/dl (2.5-4.9); POTASSIUM 4.5 mmol/L (3.5-5.1); SODIUM 140 mmol/L (135-144)
[2017-04-23] MEDS: GUAIFENESIN/CODEINE 5ML CUP PO (17:30)
[2017-04-23] MEDS: ATORVASTATIN 40 MG TAB PO (22:12)
[2017-04-23] MEDS: INSULIN GLARGINE [LANtus] 3 ML PEN SC (22:17)
[2017-04-23 22:22] LABS: HEPATITIS B SURFACE ANTIGEN NEGATIVE (NEGATIVE)
[2017-04-24] MEDS: INSULIN ASPART [NOVOLOG] 3 ML PEN SC ×7 (00:12→21:30)
[2017-04-24] MEDS: ACCU-CHEK XX (02:59)
[2017-04-24] MEDS: FUROSEMIDE 40 MG INJ IV ×2 (06:05→17:45)
[2017-04-24] MEDS: FERROUS SULFATE (EC) 325 MG TAB PO ×3 (08:26→20:52)
[2017-04-24] MEDS: ASPIRIN (EC) 81 MG TAB PO (08:26)
[2017-04-24] MEDS: LINAGLIPTIN 5 MG TABLET PO (08:27)
[2017-04-24] MEDS: ISOSORBIDE MONONITRATE(SR)30 MG TAB PO (09:00)
[2017-04-24] MEDS: LISINOPRIL 5 MG TAB PO (09:00)
[2017-04-24 09:42] LABS: ADD MAN DIFF? NO
[2017-04-24 09:50] LABS: BASOPHILS % 0.4 % (0.0-2.0); EOSINOPHILS # 0.2 10^3/ul (0.0-0.5); EOSINOPHILS % 2.9 % (0.0-7.0); HEMATOCRIT 34.6 % (37.0-47.0); LYMPHOCYTES # 1.2 10^3/ul (0.8-2.9); LYMPHOCYTES % 23.3 % (15.0-51.0); MEAN CORPUSCULAR HEMOGLOBIN 31.8 pg (29.0-33.0); MEAN CORPUSCULAR HGB CONC 31.8 g/dl (32.0-37.0); MONOCYTE # 0.6 10^3/ul (0.3-0.9); NEUTROPHIL # 3.2 10^3/ul (1.6-7.5); NEUTROPHILS % 61.2 % (39.0-77.0); PLATELET COUNT 222 10^3/UL (140-415); RED BLOOD COUNT 3.46 10^6/ul (4.20-5.40); RED CELL DISTRIBUTION WIDTH 16.3 % (11.5-14.5)
[2017-04-24 09:50] LABS: WHITE BLOOD COUNT 5.2 10^3/ul (4.8-10.8)
[2017-04-24] MEDS: AZELASTINE 0.05% 6 ML OPH BOTH EYES (10:03)
[2017-04-24 10:08] LABS: ALBUMIN 4.2 g/dl (3.3-4.9); ANION GAP 16 (8-16); BLOOD UREA NITROGEN 55 mg/dl (7-20); CARBON DIOXIDE 31 mmol/L (21-31); CHLORIDE 96 mmol/L (97-110); CREATININE 2.93 mg/dl (0.44-1.00); GLUCOSE 109 mg/dl (70-220); PHOSPHORUS 6.7 mg/dl (2.5-4.9); POTASSIUM 5.2 mmol/L (3.5-5.1); SODIUM 138 mmol/L (135-144)
[2017-04-24] MEDS: DICLOFENAC SODIUM 1% GEL 100 GM TUBE TP ×4 (10:13→20:59)
[2017-04-24] MEDS: MIDODRINE 5 MG TAB PO (16:51)
[2017-04-24] MEDS: GUAIFENESIN/CODEINE 5ML CUP PO (16:57)
[2017-04-24] MEDS: PIPER-TAZO 2.25 GM (PMX) 50 ML IVPB (18:09)
[2017-04-24] MEDS: ATORVASTATIN 40 MG TAB PO (20:52)
[2017-04-24] MEDS: INSULIN GLARGINE [LANtus] 3 ML PEN SC (20:54)
[2017-04-25] MEDS: PIPER-TAZO 2.25 GM (PMX) 50 ML IVPB ×4 (00:18→21:07)
[2017-04-25] MEDS: traMADol 50 MG TAB PO (00:30)
[2017-04-25] MEDS: PANTOPRAZOLE 40 MG INJ IV (00:30)
[2017-04-25] MEDS: ONDANSETRON 4 MG INJ IV ×2 (00:30→13:47)
[2017-04-25] MEDS: ZOLPIDEM 5 MG TAB PO (00:30)
[2017-04-25] MEDS: ACCU-CHEK XX (02:00)
[2017-04-25] MEDS: FUROSEMIDE 40 MG INJ IV ×2 (06:16→19:01)
[2017-04-25] MEDS: INSULIN ASPART [NOVOLOG] 3 ML PEN SC ×4 (07:37→21:05)
[2017-04-25] MEDS: FERROUS SULFATE (EC) 325 MG TAB PO ×3 (08:07→21:07)
[2017-04-25] MEDS: AZELASTINE 0.05% 6 ML OPH BOTH EYES (08:08)
[2017-04-25] MEDS: LINAGLIPTIN 5 MG TABLET PO (08:08)
[2017-04-25] MEDS: ASPIRIN (EC) 81 MG TAB PO (08:08)
[2017-04-25] MEDS: ISOSORBIDE MONONITRATE(SR)30 MG TAB PO (08:08)
[2017-04-25] MEDS: DICLOFENAC SODIUM 1% GEL 100 GM TUBE TP ×4 (08:08→21:27)
[2017-04-25] MEDS: LISINOPRIL 5 MG TAB PO (08:08)
[2017-04-25 08:56] LABS: ADD MAN DIFF? NO
[2017-04-25 09:06] LABS: BASOPHILS % 0.4 % (0.0-2.0); EOSINOPHILS # 0.2 10^3/ul (0.0-0.5); EOSINOPHILS % 2.8 % (0.0-7.0); HEMATOCRIT 32.7 % (37.0-47.0); HEMOGLOBIN 10.6 g/dl (12.0-16.0); LYMPHOCYTES # 1.7 10^3/ul (0.8-2.9); MEAN CORPUSCULAR HEMOGLOBIN 32.3 pg (29.0-33.0); MEAN CORPUSCULAR HGB CONC 32.4 g/dl (32.0-37.0); MEAN CORPUSCULAR VOLUME 99.7 fl (82.0-101.0); MEAN PLATELET VOLUME 10.6 fl (7.4-10.4); MONOCYTE # 0.6 10^3/ul (0.3-0.9); MONOCYTES % 11.7 % (0.0-11.0); NEUTROPHIL # 2.8 10^3/ul (1.6-7.5); NEUTROPHILS % 52.9 % (39.0-77.0); PLATELET COUNT 195 10^3/UL (140-415); RED BLOOD COUNT 3.28 10^6/ul (4.20-5.40); RED CELL DISTRIBUTION WIDTH 16.1 % (11.5-14.5)
[2017-04-25 09:06] LABS: WHITE BLOOD COUNT 5.3 10^3/ul (4.8-10.8)
[2017-04-25 09:27] LABS: ALBUMIN 3.7 g/dl (3.3-4.9); ANION GAP 17 (8-16); BLOOD UREA NITROGEN 42 mg/dl (7-20); CALCIUM 8.8 mg/dl (8.4-10.2); CARBON DIOXIDE 28 mmol/L (21-31); CHLORIDE 97 mmol/L (97-110); CREATININE 3.19 mg/dl (0.44-1.00); GLUCOSE 56 mg/dl (70-220); PHOSPHORUS 6.2 mg/dl (2.5-4.9); POTASSIUM 4.9 mmol/L (3.5-5.1); SODIUM 137 mmol/L (135-144)
[2017-04-25] MEDS: SEVELAMER 400 MG TAB PO ×2 (11:23→17:07)
[2017-04-25] MEDS: HEPARIN 5,000 UNIT/0.5 ML VIAL SC ×2 (11:29→21:07)
[2017-04-25] MEDS: MIDODRINE 5 MG TAB PO ×2 (11:39→17:08)
[2017-04-25] MEDS ORDERED: NORepinephrine 8MG/250 ML (PMX 250 ML (16:09)
[2017-04-25] MEDS: NORepinephrine 8MG/250 ML (PMX 250 ML IV (16:50)
[2017-04-25] MEDS: ACETAMINOPHEN 325 MG TAB PO (18:18)
[2017-04-25] MEDS: INSULIN GLARGINE [LANtus] 3 ML PEN SC (21:02)
[2017-04-25] MEDS: ATORVASTATIN 40 MG TAB PO (21:06)
[2017-04-26] MEDS: ACCU-CHEK XX (01:36)
[2017-04-26] MEDS: FUROSEMIDE 40 MG INJ IV (06:07)
[2017-04-26] MEDS: PIPER-TAZO 2.25 GM (PMX) 50 ML IVPB ×3 (06:07→21:45)
[2017-04-26 06:13] LABS: ADD MAN DIFF? NO
[2017-04-26 06:24] LABS: BASOPHILS % 0.3 % (0.0-2.0); EOSINOPHILS # 0.2 10^3/ul (0.0-0.5); EOSINOPHILS % 2.7 % (0.0-7.0); HEMATOCRIT 30.1 % (37.0-47.0); HEMOGLOBIN 10.1 g/dl (12.0-16.0); LYMPHOCYTES # 1.7 10^3/ul (0.8-2.9); LYMPHOCYTES % 25.8 % (15.0-51.0); MEAN CORPUSCULAR HEMOGLOBIN 32.8 pg (29.0-33.0); MEAN CORPUSCULAR HGB CONC 33.6 g/dl (32.0-37.0); MEAN CORPUSCULAR VOLUME 97.7 fl (82.0-101.0); MONOCYTE # 0.8 10^3/ul (0.3-0.9); NEUTROPHIL # 3.7 10^3/ul (1.6-7.5); PLATELET COUNT 193 10^3/UL (140-415); RED BLOOD COUNT 3.08 10^6/ul (4.20-5.40); RED CELL DISTRIBUTION WIDTH 15.4 % (11.5-14.5)
[2017-04-26 06:24] LABS: WHITE BLOOD COUNT 6.4 10^3/ul (4.8-10.8)
[2017-04-26 06:54] LABS: ALBUMIN 3.3 g/dl (3.3-4.9); ANION GAP 16 (8-16); BLOOD UREA NITROGEN 50 mg/dl (7-20); CALCIUM 8.9 mg/dl (8.4-10.2); CARBON DIOXIDE 26 mmol/L (21-31); CHLORIDE 98 mmol/L (97-110); CREATININE 3.67 mg/dl (0.44-1.00); GLUCOSE 133 mg/dl (70-220); MAGNESIUM 2.2 mg/dl (1.7-2.5); PHOSPHORUS 6.8 mg/dl (2.5-4.9); POTASSIUM 5.1 mmol/L (3.5-5.1); SODIUM 135 mmol/L (135-144)
[2017-04-26] MEDS: INSULIN ASPART [NOVOLOG] 3 ML PEN SC ×5 (07:35→21:07)
[2017-04-26] MEDS: ASPIRIN (EC) 81 MG TAB PO (08:58)
[2017-04-26] MEDS: FERROUS SULFATE (EC) 325 MG TAB PO ×3 (08:58→20:55)
[2017-04-26] MEDS: LINAGLIPTIN 5 MG TABLET PO (08:58)
[2017-04-26] MEDS: SEVELAMER 400 MG TAB PO ×3 (08:58→17:38)
[2017-04-26] MEDS: AZELASTINE 0.05% 6 ML OPH BOTH EYES (08:59)
[2017-04-26] MEDS: MIDODRINE 5 MG TAB PO (08:59)
[2017-04-26] MEDS: DICLOFENAC SODIUM 1% GEL 100 GM TUBE TP ×4 (09:00→20:57)
[2017-04-26] MEDS: HEPARIN 5,000 UNIT/0.5 ML VIAL SC ×2 (09:01→20:56)
[2017-04-26 11:27] LABS: B-TYPE NATRIURETIC PEPTIDE 8920 PG/ML (0-125)
[2017-04-26] MEDS: HEPARIN 1000 UNITS/ML 10 ML INJ CATHETER (11:59)
[2017-04-26] MEDS ORDERED: VANCOMYCIN IV PER PHARMACY XX (13:00)
[2017-04-26] MEDS: VANCOMYCIN 1 GM 250 ML IVPB (14:46)
[2017-04-26] MEDS: ATORVASTATIN 40 MG TAB PO (20:55)
[2017-04-26] MEDS: INSULIN GLARGINE [LANtus] 3 ML PEN SC (20:57)
[2017-04-27] MEDS: ACCU-CHEK XX (01:44)
[2017-04-27 04:37] LABS: ADD MAN DIFF? NO
[2017-04-27 04:43] LABS: WHITE BLOOD COUNT 4.3 10^3/ul (4.8-10.8)
[2017-04-27 04:43] LABS: BASOPHILS % 0.5 % (0.0-2.0); EOSINOPHILS # 0.1 10^3/ul (0.0-0.5); EOSINOPHILS % 2.8 % (0.0-7.0); HEMATOCRIT 28.5 % (37.0-47.0); HEMOGLOBIN 9.3 g/dl (12.0-16.0); LYMPHOCYTES # 1.4 10^3/ul (0.8-2.9); LYMPHOCYTES % 32.4 % (15.0-51.0); MEAN CORPUSCULAR HEMOGLOBIN 32.1 pg (29.0-33.0); MEAN CORPUSCULAR HGB CONC 32.6 g/dl (32.0-37.0); MEAN CORPUSCULAR VOLUME 98.3 fl (82.0-101.0); MEAN PLATELET VOLUME 10.9 fl (7.4-10.4); MONOCYTE # 0.6 10^3/ul (0.3-0.9); MONOCYTES % 13.6 % (0.0-11.0); NEUTROPHIL # 2.2 10^3/ul (1.6-7.5); NEUTROPHILS % 50.5 % (39.0-77.0); PLATELET COUNT 177 10^3/UL (140-415); RED CELL DISTRIBUTION WIDTH 15.6 % (11.5-14.5)
[2017-04-27 05:12] LABS: ANION GAP 11 (8-16); BLOOD UREA NITROGEN 22 mg/dl (7-20); CALCIUM 8.8 mg/dl (8.4-10.2); CARBON DIOXIDE 29 mmol/L (21-31); CHLORIDE 105 mmol/L (97-110); CREATININE 2.24 mg/dl (0.44-1.00); GLUCOSE 76 mg/dl (70-220); POTASSIUM 4.3 mmol/L (3.5-5.1); SODIUM 141 mmol/L (135-144)
[2017-04-27 05:15] LABS: CREATINE KINASE 22 IU/L (23-200)
[2017-04-27 05:17] LABS: CK INDEX 1.9; CK-MB 0.42 ng/ml (0.0-2.4); TROPONIN-I 0.065 ng/ml (0.00-0.12)
[2017-04-27] MEDS: FUROSEMIDE 40 MG INJ IV (05:32)
[2017-04-27] MEDS: PIPER-TAZO 2.25 GM (PMX) 50 ML IVPB ×3 (05:32→21:45)
[2017-04-27] MEDS: INSULIN ASPART [NOVOLOG] 3 ML PEN SC ×7 (07:35→20:38)
[2017-04-27] MEDS: AZELASTINE 0.05% 6 ML OPH BOTH EYES (08:48)
[2017-04-27] MEDS: SEVELAMER 400 MG TAB PO ×3 (08:48→17:48)
[2017-04-27] MEDS: DICLOFENAC SODIUM 1% GEL 100 GM TUBE TP ×4 (08:48→20:30)
[2017-04-27] MEDS: FERROUS SULFATE (EC) 325 MG TAB PO ×3 (08:48→20:27)
[2017-04-27] MEDS: ASPIRIN (EC) 81 MG TAB PO (08:48)
[2017-04-27] MEDS: HEPARIN 5,000 UNIT/0.5 ML VIAL SC ×2 (08:50→20:27)
[2017-04-27] MEDS: LINAGLIPTIN 5 MG TABLET PO (08:56)
[2017-04-27 11:35] LABS: IRON 60 ug/dl (35-150)
[2017-04-27 11:44] LABS: % IRON SATURATION 26 % SAT (22-52); TOTAL IRON BINDING CAPACITY 228 ug/dl (241-421)
[2017-04-27] MEDS: COSYNTROPIN 0.25 MG INJ IV (17:26)
[2017-04-27] MEDS: EPOETIN 10000 UNITS/1 ML INJ (ESRD) SC (17:52)
[2017-04-27] MEDS: HYDROCORTISONE 100 MG INJ IV (17:52)
[2017-04-27] MEDS: ATORVASTATIN 40 MG TAB PO (20:27)
[2017-04-27] MEDS: INSULIN GLARGINE [LANtus] 3 ML PEN SC (20:35)
[2017-04-28] MEDS: ACCU-CHEK XX (01:41)
[2017-04-28] MEDS: INSULIN ASPART [NOVOLOG] 3 ML PEN SC ×8 (02:00→21:28)
[2017-04-28] MEDS: FUROSEMIDE 40 MG INJ IV (05:24)
[2017-04-28] MEDS: PIPER-TAZO 2.25 GM (PMX) 50 ML IVPB ×3 (05:24→21:16)
[2017-04-28 05:34] LABS: ADD MAN DIFF? NO
[2017-04-28 05:42] LABS: WHITE BLOOD COUNT 4.2 10^3/ul (4.8-10.8)
[2017-04-28 05:42] LABS: HEMATOCRIT 28.8 % (37.0-47.0); HEMOGLOBIN 9.4 g/dl (12.0-16.0); LYMPHOCYTES # 0.8 10^3/ul (0.8-2.9); LYMPHOCYTES % 18.9 % (15.0-51.0); MEAN CORPUSCULAR HEMOGLOBIN 32.2 pg (29.0-33.0); MEAN CORPUSCULAR HGB CONC 32.6 g/dl (32.0-37.0); MEAN CORPUSCULAR VOLUME 98.6 fl (82.0-101.0); MEAN PLATELET VOLUME 11.2 fl (7.4-10.4); MONOCYTE # 0.2 10^3/ul (0.3-0.9); MONOCYTES % 5.3 % (0.0-11.0); NEUTROPHIL # 3.2 10^3/ul (1.6-7.5); NEUTROPHILS % 75.8 % (39.0-77.0); PLATELET COUNT 170 10^3/UL (140-415); RED BLOOD COUNT 2.92 10^6/ul (4.20-5.40); RED CELL DISTRIBUTION WIDTH 15.4 % (11.5-14.5)
[2017-04-28 06:06] LABS: VANCOMYCIN,RANDOM 11.1 ug/ml
[2017-04-28 06:20] LABS: ALBUMIN 3.2 g/dl (3.3-4.9); ANION GAP 12 (8-16); BLOOD UREA NITROGEN 37 mg/dl (7-20); CALCIUM 9.2 mg/dl (8.4-10.2); CARBON DIOXIDE 27 mmol/L (21-31); CHLORIDE 102 mmol/L (97-110); CREATININE 2.81 mg/dl (0.44-1.00); GLUCOSE 230 mg/dl (70-220); PHOSPHORUS 3.9 mg/dl (2.5-4.9); POTASSIUM 4.3 mmol/L (3.5-5.1); SODIUM 137 mmol/L (135-144)
[2017-04-28] MEDS: SEVELAMER 400 MG TAB PO ×3 (08:03→17:35)
[2017-04-28] MEDS: LINAGLIPTIN 5 MG TABLET PO (08:03)
[2017-04-28] MEDS: ASPIRIN (EC) 81 MG TAB PO (08:03)
[2017-04-28] MEDS: FERROUS SULFATE (EC) 325 MG TAB PO ×3 (08:03→21:15)
[2017-04-28] MEDS: DICLOFENAC SODIUM 1% GEL 100 GM TUBE TP ×4 (08:03→21:16)
[2017-04-28] MEDS: HEPARIN 5,000 UNIT/0.5 ML VIAL SC ×2 (08:06→21:28)
[2017-04-28] MEDS: AZELASTINE 0.05% 6 ML OPH BOTH EYES (09:10)
[2017-04-28] MEDS: SOD CHLORIDE 0.9% 250 ML IV (10:30)
[2017-04-28] MEDS: VANCOMYCIN 1 GM 250 ML IVPB (11:33)
[2017-04-28] MEDS: COSYNTROPIN 0.25 MG INJ IV (12:57)
[2017-04-28] MEDS ORDERED: GUAIFENESIN 20 MG/ML 5ML CUP PO (14:30)
[2017-04-28] MEDS: ATORVASTATIN 40 MG TAB PO (21:15)
[2017-04-28] MEDS: INSULIN GLARGINE [LANtus] 3 ML PEN SC (21:27)
[2017-04-29] MEDS: ACCU-CHEK XX (01:45)
[2017-04-29] MEDS: INSULIN ASPART [NOVOLOG] 3 ML PEN SC ×8 (02:42→21:41)
[2017-04-29] MEDS: FUROSEMIDE 40 MG INJ IV (05:46)
[2017-04-29] MEDS: PIPER-TAZO 2.25 GM (PMX) 50 ML IVPB ×3 (05:46→21:50)
[2017-04-29] MEDS: LINAGLIPTIN 5 MG TABLET PO (08:04)
[2017-04-29] MEDS: SEVELAMER 400 MG TAB PO ×3 (08:04→17:22)
[2017-04-29] MEDS: DICLOFENAC SODIUM 1% GEL 100 GM TUBE TP ×4 (08:05→21:50)
[2017-04-29] MEDS: ASPIRIN (EC) 81 MG TAB PO (08:05)
[2017-04-29] MEDS: FERROUS SULFATE (EC) 325 MG TAB PO ×3 (08:05→21:27)
[2017-04-29] MEDS: AZELASTINE 0.05% 6 ML OPH BOTH EYES (08:21)
[2017-04-29] MEDS: HEPARIN 5,000 UNIT/0.5 ML VIAL SC ×2 (08:21→21:40)
[2017-04-29 09:11] LABS: ADD MAN DIFF? NO
[2017-04-29 09:13] LABS: BASOPHILS % 0.2 % (0.0-2.0); EOSINOPHILS # 0.1 10^3/ul (0.0-0.5); EOSINOPHILS % 2.3 % (0.0-7.0); HEMATOCRIT 28.7 % (37.0-47.0); HEMOGLOBIN 9.5 g/dl (12.0-16.0); LYMPHOCYTES # 1.3 10^3/ul (0.8-2.9); LYMPHOCYTES % 26.8 % (15.0-51.0); MEAN CORPUSCULAR HEMOGLOBIN 32.3 pg (29.0-33.0); MEAN CORPUSCULAR HGB CONC 33.1 g/dl (32.0-37.0); MEAN CORPUSCULAR VOLUME 97.6 fl (82.0-101.0); MEAN PLATELET VOLUME 10.6 fl (7.4-10.4); MONOCYTE # 0.4 10^3/ul (0.3-0.9); MONOCYTES % 8.3 % (0.0-11.0); NEUTROPHILS % 62.2 % (39.0-77.0); PLATELET COUNT 179 10^3/UL (140-415); RED BLOOD COUNT 2.94 10^6/ul (4.20-5.40); RED CELL DISTRIBUTION WIDTH 15.3 % (11.5-14.5)
[2017-04-29 09:13] LABS: WHITE BLOOD COUNT 4.8 10^3/ul (4.8-10.8)
[2017-04-29 09:43] LABS: ANION GAP 16 (8-16); BLOOD UREA NITROGEN 46 mg/dl (7-20); CARBON DIOXIDE 26 mmol/L (21-31); CHLORIDE 102 mmol/L (97-110); GLUCOSE 175 mg/dl (70-220); POTASSIUM 3.7 mmol/L (3.5-5.1); SODIUM 140 mmol/L (135-144)
[2017-04-29] MEDS ORDERED: BENAZEPRIL 10 MG TAB PO (11:00)
[2017-04-29] MEDS: HEPARIN 1000 UNITS/ML 10 ML INJ CATHETER (17:09)
[2017-04-29] MEDS: BENAZEPRIL 20 MG TAB PO (21:28)
[2017-04-29] MEDS: INSULIN GLARGINE [LANtus] 3 ML PEN SC (21:41)
[2017-04-29] MEDS: ATORVASTATIN 40 MG TAB PO (21:50)
[2017-04-30] MEDS: ACCU-CHEK XX (02:00)
[2017-04-30] MEDS: PIPER-TAZO 2.25 GM (PMX) 50 ML IVPB (05:07)
[2017-04-30] MEDS: FUROSEMIDE 40 MG INJ IV (05:07)
[2017-04-30 05:12] LABS: ADD MAN DIFF? NO
[2017-04-30 05:23] LABS: WHITE BLOOD COUNT 4.7 10^3/ul (4.8-10.8)
[2017-04-30 05:23] LABS: BASOPHILS % 0.4 % (0.0-2.0); EOSINOPHILS # 0.1 10^3/ul (0.0-0.5); EOSINOPHILS % 2.6 % (0.0-7.0); HEMATOCRIT 29.5 % (37.0-47.0); HEMOGLOBIN 9.7 g/dl (12.0-16.0); LYMPHOCYTES # 1.5 10^3/ul (0.8-2.9); LYMPHOCYTES % 31.9 % (15.0-51.0); MEAN CORPUSCULAR HEMOGLOBIN 32.1 pg (29.0-33.0); MEAN CORPUSCULAR HGB CONC 32.9 g/dl (32.0-37.0); MEAN CORPUSCULAR VOLUME 97.7 fl (82.0-101.0); MEAN PLATELET VOLUME 10.9 fl (7.4-10.4); MONOCYTE # 0.5 10^3/ul (0.3-0.9); MONOCYTES % 9.6 % (0.0-11.0); NEUTROPHIL # 2.6 10^3/ul (1.6-7.5); NEUTROPHILS % 55.3 % (39.0-77.0); PLATELET COUNT 180 10^3/UL (140-415); RED BLOOD COUNT 3.02 10^6/ul (4.20-5.40)
[2017-04-30 06:15] LABS: ANION GAP 13 (8-16); BLOOD UREA NITROGEN 27 mg/dl (7-20); CALCIUM 8.6 mg/dl (8.4-10.2); CARBON DIOXIDE 28 mmol/L (21-31); CHLORIDE 100 mmol/L (97-110); CREATININE 1.97 mg/dl (0.44-1.00); GLUCOSE 211 mg/dl (70-220); SODIUM 137 mmol/L (135-144)
[2017-04-30] MEDS: IOHEXOL 300MG/ML 150 ML BTL (06:38)
[2017-04-30] MEDS: SOD CHLORIDE 0.9% 100 ML (06:38)
[2017-04-30] MEDS: LINAGLIPTIN 5 MG TABLET PO (08:44)
[2017-04-30] MEDS: SEVELAMER 400 MG TAB PO ×3 (08:45→16:54)
[2017-04-30] MEDS: ASPIRIN (EC) 81 MG TAB PO (08:45)
[2017-04-30] MEDS: BENAZEPRIL 20 MG TAB PO ×2 (08:46→20:43)
[2017-04-30] MEDS: FERROUS SULFATE (EC) 325 MG TAB PO ×3 (08:47→20:43)
[2017-04-30] MEDS: HEPARIN 5,000 UNIT/0.5 ML VIAL SC ×2 (08:54→20:45)
[2017-04-30] MEDS: INSULIN ASPART [NOVOLOG] 3 ML PEN SC ×7 (08:57→20:46)
[2017-04-30] MEDS: DICLOFENAC SODIUM 1% GEL 100 GM TUBE TP ×4 (09:01→20:46)
[2017-04-30] MEDS: AZELASTINE 0.05% 6 ML OPH BOTH EYES (09:02)
[2017-04-30 15:01] LABS: NIL 0.03 IU/mL; QUANTIFERON(R)-TB GOLD NEGATIVE (NEGATIVE); TB-NIL 0.03 IU/mL
[2017-04-30] MEDS: EPOETIN 10000 UNITS/1 ML INJ (ESRD) SC (16:54)
[2017-04-30] MEDS: ATORVASTATIN 40 MG TAB PO (20:43)
[2017-04-30] MEDS: INSULIN GLARGINE [LANtus] 3 ML PEN SC (20:54)
[2017-05-01] MEDS: ACCU-CHEK XX (02:00)
[2017-05-01] MEDS: FUROSEMIDE 40 MG INJ IV (05:46)
[2017-05-01] MEDS: SEVELAMER 400 MG TAB PO ×3 (08:15→16:34)
[2017-05-01] MEDS: LINAGLIPTIN 5 MG TABLET PO (08:15)
[2017-05-01] MEDS: FERROUS SULFATE (EC) 325 MG TAB PO ×3 (08:15→21:16)
[2017-05-01] MEDS: ASPIRIN (EC) 81 MG TAB PO (08:15)
[2017-05-01] MEDS: INSULIN ASPART [NOVOLOG] 3 ML PEN SC ×7 (08:21→21:19)
[2017-05-01] MEDS: HEPARIN 5,000 UNIT/0.5 ML VIAL SC ×2 (08:22→21:17)
[2017-05-01] MEDS: BENAZEPRIL 20 MG TAB PO ×2 (08:29→21:00)
[2017-05-01] MEDS: DICLOFENAC SODIUM 1% GEL 100 GM TUBE TP ×4 (09:59→21:20)
[2017-05-01] MEDS: AZELASTINE 0.05% 6 ML OPH BOTH EYES (10:00)
[2017-05-01] MEDS: SOD CHLORIDE 0.9% 250 ML IV (15:31)
[2017-05-01] MEDS: SOD CHLORIDE 0.9% 500 ML IV (16:03)
[2017-05-01 16:20] LABS: LACTIC ACID 2.1 mmol/L (0.5-2.0)
[2017-05-01] MEDS ORDERED: NORepinephrine 8MG/250 ML (PMX 250 ML (17:19)
[2017-05-01] MEDS: NORepinephrine 8MG/250 ML (PMX 250 ML IV (17:30)
[2017-05-01 19:26] LABS: LACTIC ACID 1.3 mmol/L (0.5-2.0)
[2017-05-01] MEDS ORDERED: NORepinephrine 8MG/250 ML (PMX 250 ML IV (20:20)
[2017-05-01] MEDS: ATORVASTATIN 40 MG TAB PO (21:16)
[2017-05-01] MEDS: INSULIN GLARGINE [LANtus] 3 ML PEN SC (21:20)
[2017-05-02] MEDS: ACCU-CHEK XX (02:41)
[2017-05-02] MEDS: FUROSEMIDE 40 MG INJ IV (06:47)
[2017-05-02 07:24] LABS: ADD MAN DIFF? NO
[2017-05-02 07:29] LABS: WHITE BLOOD COUNT 6.2 10^3/ul (4.8-10.8)
[2017-05-02 07:29] LABS: BASOPHILS % 0.3 % (0.0-2.0); EOSINOPHILS # 0.2 10^3/ul (0.0-0.5); EOSINOPHILS % 3.6 % (0.0-7.0); HEMATOCRIT 28.5 % (37.0-47.0); HEMOGLOBIN 9.3 g/dl (12.0-16.0); LYMPHOCYTES # 1.2 10^3/ul (0.8-2.9); LYMPHOCYTES % 19.8 % (15.0-51.0); MEAN CORPUSCULAR HEMOGLOBIN 32.9 pg (29.0-33.0); MEAN CORPUSCULAR HGB CONC 32.6 g/dl (32.0-37.0); MEAN CORPUSCULAR VOLUME 100.7 fl (82.0-101.0); MONOCYTE # 0.6 10^3/ul (0.3-0.9); MONOCYTES % 9.3 % (0.0-11.0); NEUTROPHIL # 4.1 10^3/ul (1.6-7.5); NEUTROPHILS % 66.7 % (39.0-77.0); PLATELET COUNT 200 10^3/UL (140-415); RED BLOOD COUNT 2.83 10^6/ul (4.20-5.40); RED CELL DISTRIBUTION WIDTH 15.1 % (11.5-14.5)
[2017-05-02] MEDS: INSULIN ASPART [NOVOLOG] 3 ML PEN SC ×6 (07:30→18:37)
[2017-05-02] MEDS: SEVELAMER 400 MG TAB PO ×3 (07:31→18:39)
[2017-05-02 07:59] LABS: MAGNESIUM 2.3 mg/dl (1.7-2.5)
[2017-05-02 07:59] LABS: LACTIC ACID 1.2 mmol/L (0.5-2.0); PHOSPHORUS 6.1 mg/dl (2.5-4.9)
[2017-05-02 08:03] LABS: ALANINE AMINOTRANSFERASE 39 IU/L (13-69); ALBUMIN 2.8 g/dl (3.3-4.9); ALKALINE PHOSPHATASE 92 IU/L (42-121); ANION GAP 15 (8-16); ASPARTATE AMINO TRANSFERASE 23 IU/L (15-46); BLOOD UREA NITROGEN 64 mg/dl (7-20); CARBON DIOXIDE 25 mmol/L (21-31); CHLORIDE 100 mmol/L (97-110); CREATININE 3.87 mg/dl (0.44-1.00); GLUCOSE 83 mg/dl (70-220); POTASSIUM 4.8 mmol/L (3.5-5.1); SODIUM 135 mmol/L (135-144); TOTAL PROTEIN 5.6 g/dl (6.1-8.1)
[2017-05-02] MEDS: ASPIRIN (EC) 81 MG TAB PO (08:44)
[2017-05-02] MEDS: FERROUS SULFATE (EC) 325 MG TAB PO ×2 (08:44→13:05)
[2017-05-02] MEDS: LINAGLIPTIN 5 MG TABLET PO (08:45)
[2017-05-02] MEDS: HEPARIN 5,000 UNIT/0.5 ML VIAL SC (08:46)
[2017-05-02] MEDS: DICLOFENAC SODIUM 1% GEL 100 GM TUBE TP ×3 (08:47→18:39)
[2017-05-02] MEDS: BENAZEPRIL 20 MG TAB PO (09:00)
[2017-05-02] MEDS: AZELASTINE 0.05% 6 ML OPH BOTH EYES (11:10)
[2017-05-02] MEDS: ACETAMINOPHEN 325 MG TAB PO (11:16)
[2017-05-02] MEDS: ALBUMIN HUMAN 25% 100 ML IV (15:16)
[2017-05-02 15:41] LABS: NIL 0.04 IU/mL; QUANTIFERON(R)-TB GOLD NEGATIVE (NEGATIVE); TB-NIL 0.08 IU/mL
[2017-05-02] MEDS: ONDANSETRON 4 MG INJ IV (15:47)
[2017-05-02] MEDS: HEPARIN 1000 UNITS/ML 10 ML INJ CATHETER (18:22)
[2017-05-02] MEDS: EPOETIN 10000 UNITS/1 ML INJ (ESRD) SC (18:38)
== END 2017-05-02 22:15 | disposition home or self-care (01) | DRG 291 ==
LOC: ICU 04-25 16:00 → E/R 05:23 → TEL 04-30 22:50 → MS4 08:39
PROC: 06HM33Z Insertion of Infusion Device into Right Femoral Vein, Percutaneous Approach (ICD-10-PCS; principal; 2017-04-24)
PROC: 5A1D70Z Performance of Urinary Filtration, Intermittent, Less than 6 Hours Per Day (ICD-10-PCS; 2017-04-24)
DX: I13.2 Hypertensive heart and chronic kidney disease with heart failure and with stage 5 chronic kidney disease, or end stage renal disease (principal); I50.43 Acute on chronic combined systolic (congestive) and diastolic (congestive) heart failure; N18.6 End stage renal disease; J96.01 Acute respiratory failure with hypoxia; J18.9 Pneumonia, unspecified organism; I95.89 Other hypotension; E11.22 Type 2 diabetes mellitus with diabetic chronic kidney disease; E11.65 Type 2 diabetes mellitus with hyperglycemia; I42.9 Cardiomyopathy, unspecified; E83.39 Other disorders of phosphorus metabolism; D63.1 Anemia in chronic kidney disease; G90.9 Disorder of the autonomic nervous system, unspecified; R91.1 Solitary pulmonary nodule; M17.0 Bilateral primary osteoarthritis of knee; E78.5 Hyperlipidemia, unspecified; I08.0 Rheumatic disorders of both mitral and aortic valves; E87.5 Hyperkalemia; Z79.4 Long term (current) use of insulin; Z99.2 Dependence on renal dialysis
CPT/HCPCS: 36415; 71045; 71260; 73562; 74176; 80048; 80053; 80069; 80202; 82533; 82550; 82553; 82728; 82962; 83540; 83605; 83735; 83880; 84100; 84484; 85025; 85610; 85730; 86480; 86635; 87040; 87081; 87086; 87340; 90935; 93005; 96372; 96374; 96376; 99285-25

== ENCOUNTER 2017-05-22 05:34 | Inpatient (IN) | payer MEDICARE, OTHER, BC ==
[2017-05-22 07:36] LABS: ADD MAN DIFF? NO
[2017-05-22 07:38] LABS: BASOPHILS % 0.4 % (0.0-2.0); EOSINOPHILS # 0.2 10^3/ul (0.0-0.5); HEMATOCRIT 34.6 % (37.0-47.0); HEMOGLOBIN 11.1 g/dl (12.0-16.0); LYMPHOCYTES # 1.1 10^3/ul (0.8-2.9); LYMPHOCYTES % 19.8 % (15.0-51.0); MEAN CORPUSCULAR HEMOGLOBIN 32.3 pg (29.0-33.0); MEAN CORPUSCULAR HGB CONC 32.1 g/dl (32.0-37.0); MEAN CORPUSCULAR VOLUME 100.6 fl (82.0-101.0); MEAN PLATELET VOLUME 11.9 fl (7.4-10.4); MONOCYTE # 0.5 10^3/ul (0.3-0.9); NEUTROPHIL # 3.8 10^3/ul (1.6-7.5); NEUTROPHILS % 67.4 % (39.0-77.0); PLATELET COUNT 159 10^3/UL (140-415); RED BLOOD COUNT 3.44 10^6/ul (4.20-5.40); RED CELL DISTRIBUTION WIDTH 15.1 % (11.5-14.5)
[2017-05-22 07:38] LABS: WHITE BLOOD COUNT 5.7 10^3/ul (4.8-10.8)
[2017-05-22 07:53] LABS: INR 0.93; PARTIAL THROMBOPLASTIN TIME 30.3 Sec (25.0-35.0); PROTIME 12.5 Sec (11.9-14.9)
[2017-05-22 07:56] LABS: LACTIC ACID 1.1 mmol/L (0.5-2.0)
[2017-05-22 07:57] LABS: ALANINE AMINOTRANSFERASE 35 IU/L (13-69); ALBUMIN 3.5 g/dl (3.3-4.9); ALBUMIN/GLOBULIN RATIO 1.12; ALKALINE PHOSPHATASE 152 IU/L (42-121); ANION GAP 12 (8-16); ASPARTATE AMINO TRANSFERASE 23 IU/L (15-46); BILIRUBIN,INDIRECT 0.5 mg/dl (0-1.1); BILIRUBIN,TOTAL 0.5 mg/dl (0.2-1.3); BLOOD UREA NITROGEN 33 mg/dl (7-20); CALCIUM 8.8 mg/dl (8.4-10.2); CARBON DIOXIDE 28 mmol/L (21-31); CHLORIDE 102 mmol/L (97-110); CREATININE 1.88 mg/dl (0.44-1.00); GLUCOSE 346 mg/dl (70-220); SODIUM 138 mmol/L (135-144); TOTAL PROTEIN 6.6 g/dl (6.1-8.1)
[2017-05-22 08:08] LABS: TROPONIN-I 0.063 ng/ml (0.00-0.12)
[2017-05-22] MEDS: hydrALAzine 20 MG INJ IV (14:19)
[2017-05-22] MEDS ORDERED: HYDROCODONE/APAP (5/325) TAB PO (14:30)
[2017-05-22] MEDS ORDERED: NACL 0.9% 3 ML SYG IV (14:30)
[2017-05-22] MEDS ORDERED: DOCUSATE SODIUM 100 MG CAP PO (14:30)
[2017-05-22] MEDS ORDERED: MAGNESIUM HYDROXIDE 30ML CUP PO (14:30)
[2017-05-22] MEDS ORDERED: BISACODYL 10 MG SUPP PR (14:30)
[2017-05-22] MEDS: NITROGLYCERIN 2% 1 GM OINT PKT TD ×2 (14:48→21:01)
[2017-05-22] MEDS: HYDROCODONE/APAP (5/325) TAB PO (14:51)
[2017-05-22] MEDS: ASPIRIN 81 MG TAB PO (14:53)
[2017-05-22] MEDS: FAMOTIDINE 20 MG TAB PO (14:57)
[2017-05-22] MEDS ORDERED: GLUCOSE GEL 15 GRAM TUBE PO ×2 (15:00)
[2017-05-22] MEDS ORDERED: DEXTROSE 50% 50 ML SYRINGE IV ×2 (15:00)
[2017-05-22] MEDS ORDERED: GLUCAGON 1 MG INJ IM (15:00)
[2017-05-22] MEDS ORDERED: hydrALAzine 20 MG INJ IV (15:00)
[2017-05-22] MEDS ORDERED: GLUCOSE GEL 15 GRAM TUBE BUCCAL (15:00)
[2017-05-22] MEDS: NITROGLYCERIN (SL) 0.4 MG TAB SL ×3 (15:18→15:34)
[2017-05-22] MEDS ORDERED: **FLU VACCINE PREVIOUSLY DISPENSED XX (15:30)
[2017-05-22] MEDS: morphine 2 MG INJ IV ×2 (15:42→21:00)
[2017-05-22] MEDS: INSULIN ASPART [NOVOLOG] 3 ML PEN SC ×3 (17:10→21:00)
[2017-05-22 17:11] LABS: CREATINE KINASE 29 IU/L (23-200)
[2017-05-22 17:25] LABS: CK INDEX 2.6; CK-MB 0.74 ng/ml (0.0-2.4); TROPONIN-I 0.056 ng/ml (0.00-0.12)
[2017-05-22] MEDS: ATORVASTATIN 40 MG TAB PO (21:00)
[2017-05-22] MEDS: ONDANSETRON 4 MG INJ IV (21:00)
[2017-05-22] MEDS: HEPARIN 5,000 UNIT/0.5 ML VIAL SC (21:12)
[2017-05-22] MEDS: ACETAMINOPHEN 325 MG TAB PO (21:15)
[2017-05-22] MEDS: INSULIN GLARGINE [LANtus] 3 ML PEN SC (21:17)
[2017-05-22 22:45] LABS: CREATINE KINASE 32 IU/L (23-200)
[2017-05-22 23:00] LABS: CK INDEX 2.7; CK-MB 0.85 ng/ml (0.0-2.4); TROPONIN-I 0.068 ng/ml (0.00-0.12)
[2017-05-23] MEDS: ACCU-CHEK XX (02:00)
[2017-05-23] MEDS: HEPARIN 1000 UNITS/ML 10 ML INJ CATHETER (03:10)
[2017-05-23] MEDS: ONDANSETRON 4 MG INJ IV ×2 (05:01→15:44)
[2017-05-23] MEDS: NITROGLYCERIN 2% 1 GM OINT PKT TD (05:03)
[2017-05-23] MEDS: morphine 2 MG INJ IV (05:03)
[2017-05-23] MEDS: ACETAMINOPHEN 325 MG TAB PO (05:04)
[2017-05-23 06:35] LABS: ADD MAN DIFF? NO
[2017-05-23 06:41] LABS: BASOPHILS % 0.2 % (0.0-2.0); EOSINOPHILS # 0.1 10^3/ul (0.0-0.5); EOSINOPHILS % 1.7 % (0.0-7.0); HEMATOCRIT 30.1 % (37.0-47.0); HEMOGLOBIN 9.8 g/dl (12.0-16.0); LYMPHOCYTES % 17.4 % (15.0-51.0); MEAN CORPUSCULAR HEMOGLOBIN 32.7 pg (29.0-33.0); MEAN CORPUSCULAR HGB CONC 32.6 g/dl (32.0-37.0); MEAN CORPUSCULAR VOLUME 100.3 fl (82.0-101.0); MEAN PLATELET VOLUME 11.3 fl (7.4-10.4); MONOCYTE # 0.6 10^3/ul (0.3-0.9); MONOCYTES % 9.2 % (0.0-11.0); NEUTROPHIL # 4.3 10^3/ul (1.6-7.5); NEUTROPHILS % 71.3 % (39.0-77.0); PLATELET COUNT 141 10^3/UL (140-415); RED CELL DISTRIBUTION WIDTH 14.9 % (11.5-14.5)
[2017-05-23 07:04] LABS: ALANINE AMINOTRANSFERASE 26 IU/L (13-69); ALBUMIN 3.2 g/dl (3.3-4.9); ALBUMIN/GLOBULIN RATIO 0.94; ALKALINE PHOSPHATASE 96 IU/L (42-121); ANION GAP 7 (8-16); ASPARTATE AMINO TRANSFERASE 21 IU/L (15-46); BILIRUBIN,INDIRECT 0.9 mg/dl (0-1.1); BILIRUBIN,TOTAL 0.9 mg/dl (0.2-1.3); BLOOD UREA NITROGEN 14 mg/dl (7-20); CALCIUM 8.7 mg/dl (8.4-10.2); CARBON DIOXIDE 28 mmol/L (21-31); CHLORIDE 104 mmol/L (97-110); CHOL/HDL RATIO 3.2 RATIO; CHOLESTEROL 197 mg/dl (100-200); CREATININE 1.16 mg/dl (0.44-1.00); GLUCOSE 94 mg/dl (70-220); HDL CHOLESTEROL 60 mg/dl (33-92); MAGNESIUM 1.8 mg/dl (1.7-2.5); POTASSIUM 4.3 mmol/L (3.5-5.1); SODIUM 135 mmol/L (135-144); TOTAL PROTEIN 6.6 g/dl (6.1-8.1); TRIGLYCERIDES 58 mg/dl (0-149)
[2017-05-23 07:05] LABS: LDL CHOLESTEROL,CALCULATED 125 mg/dl
[2017-05-23] MEDS: INSULIN ASPART [NOVOLOG] 3 ML PEN SC ×6 (07:55→17:27)
[2017-05-23 08:07] LABS: HEMOGLOBIN A1C 7.4 % (0-5.9)
[2017-05-23] MEDS: ASPIRIN 81 MG TAB PO (08:53)
[2017-05-23] MEDS: AZELASTINE 0.05% 6 ML OPH BOTH EYES (08:54)
[2017-05-23] MEDS: HEPARIN 5,000 UNIT/0.5 ML VIAL SC (08:57)
[2017-05-23] MEDS: FAMOTIDINE 20 MG TAB PO (15:44)
[2017-05-23] MEDS ORDERED: morphine LIQ (10 MG/5 ML) CUP PO (18:00)
[2017-05-23] MEDS ORDERED: INSULIN GLARGINE [LANtus] 3 ML PEN SC (20:00)
== END 2017-05-23 19:50 | disposition home health service (06) | DRG 304 ==
LOC: E/R 05:34 → TEL 13:17
PROC: 5A1D70Z Performance of Urinary Filtration, Intermittent, Less than 6 Hours Per Day (ICD-10-PCS; principal; 2017-05-22)
DX: I16.0 Hypertensive urgency (principal); N18.6 End stage renal disease; I50.23 Acute on chronic systolic (congestive) heart failure; I42.9 Cardiomyopathy, unspecified; E11.22 Type 2 diabetes mellitus with diabetic chronic kidney disease; E11.65 Type 2 diabetes mellitus with hyperglycemia; I13.2 Hypertensive heart and chronic kidney disease with heart failure and with stage 5 chronic kidney disease, or end stage renal disease; R91.1 Solitary pulmonary nodule; I70.8 Atherosclerosis of other arteries; Z99.2 Dependence on renal dialysis; Z79.4 Long term (current) use of insulin; Z79.84 Long term (current) use of oral hypoglycemic drugs
CPT/HCPCS: 36415; 71045; 80053; 80061; 82550; 82553; 82962; 83036; 83605; 83735; 84484; 85025; 85610; 85730; 87040; 87081; 90935; 93005; 93308; 93923; 96374; 99285-25

== ENCOUNTER 2017-06-21 10:29 | Observation (INO) | payer MEDICARE, OTHER ==
[2017-06-21 12:48] LABS: ADD MAN DIFF? NO
[2017-06-21 12:54] LABS: WHITE BLOOD COUNT 5.8 10^3/ul (4.8-10.8)
[2017-06-21 12:54] LABS: BASOPHILS % 0.2 % (0.0-2.0); EOSINOPHILS # 0.1 10^3/ul (0.0-0.5); EOSINOPHILS % 1.6 % (0.0-7.0); HEMATOCRIT 31.3 % (37.0-47.0); HEMOGLOBIN 10.2 g/dl (12.0-16.0); LYMPHOCYTES # 0.7 10^3/ul (0.8-2.9); LYMPHOCYTES % 11.7 % (15.0-51.0); MEAN CORPUSCULAR HEMOGLOBIN 31.3 pg (29.0-33.0); MEAN CORPUSCULAR HGB CONC 32.6 g/dl (32.0-37.0); MEAN PLATELET VOLUME 11.6 fl (7.4-10.4); MONOCYTE # 0.3 10^3/ul (0.3-0.9); MONOCYTES % 5.7 % (0.0-11.0); NEUTROPHIL # 4.7 10^3/ul (1.6-7.5); NEUTROPHILS % 80.5 % (39.0-77.0); PLATELET COUNT 185 10^3/UL (140-415); RED BLOOD COUNT 3.26 10^6/ul (4.20-5.40); RED CELL DISTRIBUTION WIDTH 14.1 % (11.5-14.5)
[2017-06-21 12:57] LABS: INR 0.97; PARTIAL THROMBOPLASTIN TIME 29.2 Sec (25.0-35.0)
[2017-06-21 13:00] LABS: ANION GAP 17 (8-16); BLOOD UREA NITROGEN 51 mg/dl (7-20); CALCIUM 8.6 mg/dl (8.4-10.2); CARBON DIOXIDE 26 mmol/L (21-31); CHLORIDE 104 mmol/L (97-110); CREATININE 2.24 mg/dl (0.44-1.00); GLUCOSE 145 mg/dl (70-220); POTASSIUM 5.3 mmol/L (3.5-5.1); SODIUM 142 mmol/L (135-144)
[2017-06-21] MEDS: ONDANSETRON 4 MG INJ IV (13:05)
[2017-06-21] MEDS: morphine 4 MG/ML VIAL IV (13:05)
[2017-06-21] MEDS: ASPIRIN 81 MG TAB PO (13:05)
[2017-06-21 13:11] LABS: TROPONIN-I 0.051 ng/ml (0.00-0.12)
[2017-06-21] MEDS ORDERED: ACETAMINOPHEN 325 MG TAB PO (15:00)
[2017-06-21] MEDS ORDERED: ONDANSETRON 4 MG INJ IV (15:00)
[2017-06-21] MEDS ORDERED: GLUCOSE GEL 15 GRAM TUBE BUCCAL (15:30)
[2017-06-21] MEDS ORDERED: GLUCAGON 1 MG INJ IM (15:30)
[2017-06-21] MEDS ORDERED: NACL 0.9% 3 ML SYG IV (15:30)
[2017-06-21] MEDS ORDERED: DEXTROSE 50% 50 ML SYRINGE IV ×2 (15:30)
[2017-06-21] MEDS ORDERED: GLUCOSE GEL 15 GRAM TUBE PO (15:30)
[2017-06-21] MEDS: NA POLYST SULFON 15 GM/60 ML BTL PO (17:46)
[2017-06-21] MEDS: LINAGLIPTIN 5 MG TABLET PO (17:46)
[2017-06-21] MEDS: INSULIN ASPART [NOVOLOG] 3 ML PEN SC ×2 (17:48→23:46)
[2017-06-21 19:51] LABS: CREATINE KINASE 29 IU/L (23-200)
[2017-06-21 20:38] LABS: CK INDEX 2.3; CK-MB 0.66 ng/ml (0.0-2.4)
[2017-06-21] MEDS: ATORVASTATIN 80 MG TAB PO (23:45)
[2017-06-21] MEDS: OXYCODONE/ACETAMINOPHEN (5/325) TAB PO (23:47)
[2017-06-21] MEDS: HEPARIN 5,000 UNIT/0.5 ML VIAL SC (23:54)
[2017-06-22] MEDS: INSULIN GLARGINE [LANtus] 3 ML PEN SC (00:07)
[2017-06-22 01:05] LABS: CREATINE KINASE 34 IU/L (23-200)
[2017-06-22 01:17] LABS: CK INDEX 2.8; CK-MB 0.95 ng/ml (0.0-2.4); TROPONIN-I 0.063 ng/ml (0.00-0.12)
[2017-06-22] MEDS: ACCU-CHEK XX (02:00)
[2017-06-22] MEDS: HEPARIN 5,000 UNIT/0.5 ML VIAL SC ×2 (06:21→15:06)
[2017-06-22 07:50] LABS: ANION GAP 15 (8-16); BLOOD UREA NITROGEN 52 mg/dl (7-20); CALCIUM 8.3 mg/dl (8.4-10.2); CARBON DIOXIDE 26 mmol/L (21-31); CHLORIDE 109 mmol/L (97-110); CREATININE 2.26 mg/dl (0.44-1.00); GLUCOSE 60 mg/dl (70-220); POTASSIUM 4.5 mmol/L (3.5-5.1); SODIUM 145 mmol/L (135-144)
[2017-06-22] MEDS: INSULIN ASPART [NOVOLOG] 3 ML PEN SC ×2 (08:00→11:56)
[2017-06-22] MEDS: GLUCOSE GEL 15 GRAM TUBE PO (08:36)
[2017-06-22] MEDS: ASPIRIN (EC) 81 MG TAB PO (09:17)
[2017-06-22] MEDS: CHOLECALCIFEROL 1,000 UNIT TAB PO (09:18)
[2017-06-22] MEDS: ISOSORBIDE MONONITRATE(SR)30 MG TAB PO (09:19)
[2017-06-22] MEDS: LINAGLIPTIN 5 MG TABLET PO (09:20)
[2017-06-22] MEDS: AZELASTINE 0.05% 6 ML OPH BOTH EYES (11:44)
== END 2017-06-22 16:42 | disposition home or self-care (01) ==
LOC: E/R 10:29 → TEL 14:58
DX: R07.89 Other chest pain (principal); R10.31 Right lower quadrant pain; I12.9 Hypertensive chronic kidney disease with stage 1 through stage 4 chronic kidney disease, or unspecified chronic kidney disease; N18.9 Chronic kidney disease, unspecified; I50.9 Heart failure, unspecified; E78.5 Hyperlipidemia, unspecified; E11.9 Type 2 diabetes mellitus without complications; Z79.4 Long term (current) use of insulin; R91.1 Solitary pulmonary nodule; I77.1 Stricture of artery; J43.9 Emphysema, unspecified
CPT/HCPCS: 36415; 71045; 80048; 82550; 82553; 82962; 84484; 85025; 85610; 85730; 93005; 96374; 96375; 99285-25; G0378

== ENCOUNTER 2017-07-23 00:40 | Emergency (ER) | payer MEDICARE, OTHER ==
[2017-07-23 02:19] LABS: ADD MAN DIFF? NO
[2017-07-23 02:22] LABS: WHITE BLOOD COUNT 5.3 10^3/ul (4.8-10.8)
[2017-07-23 02:22] LABS: BASOPHILS % 0.2 % (0.0-2.0); EOSINOPHILS # 0.2 10^3/ul (0.0-0.5); HEMOGLOBIN 8.8 g/dl (12.0-16.0); LYMPHOCYTES # 1.2 10^3/ul (0.8-2.9); LYMPHOCYTES % 22.8 % (15.0-51.0); MEAN CORPUSCULAR HEMOGLOBIN 30.6 pg (29.0-33.0); MEAN CORPUSCULAR HGB CONC 32.6 g/dl (32.0-37.0); MEAN CORPUSCULAR VOLUME 93.8 fl (82.0-101.0); MEAN PLATELET VOLUME 11.8 fl (7.4-10.4); MONOCYTE # 0.6 10^3/ul (0.3-0.9); MONOCYTES % 11.8 % (0.0-11.0); NEUTROPHIL # 3.3 10^3/ul (1.6-7.5); NEUTROPHILS % 61.8 % (39.0-77.0); PLATELET COUNT 170 10^3/UL (140-415); RED BLOOD COUNT 2.88 10^6/ul (4.20-5.40); RED CELL DISTRIBUTION WIDTH 14.1 % (11.5-14.5)
[2017-07-23] MEDS: ONDANSETRON 4 MG INJ IV (02:25)
[2017-07-23] MEDS: morphine 4 MG/ML VIAL IV (02:25)
[2017-07-23 02:49] LABS: ALANINE AMINOTRANSFERASE 698 IU/L (13-69); ALBUMIN 3.6 g/dl (3.3-4.9); ALKALINE PHOSPHATASE 883 IU/L (42-121); ANION GAP 13 (8-16); ASPARTATE AMINO TRANSFERASE 740 IU/L (15-46); BILIRUBIN,INDIRECT 0.1 mg/dl (0-1.1); BILIRUBIN,TOTAL 0.1 mg/dl (0.2-1.3); BLOOD UREA NITROGEN 62 mg/dl (7-20); CARBON DIOXIDE 28 mmol/L (21-31); CHLORIDE 102 mmol/L (97-110); CREATININE 2.45 mg/dl (0.44-1.00); GLUCOSE 121 mg/dl (70-220); LIPASE 139 U/L (23-300); POTASSIUM 4.2 mmol/L (3.5-5.1); SODIUM 139 mmol/L (135-144); TOTAL PROTEIN 7.2 g/dl (6.1-8.1)
[2017-07-23 02:58] LABS: B-TYPE NATRIURETIC PEPTIDE 15400 PG/ML (0-125); TROPONIN-I 0.087 ng/ml (0.00-0.12)
[2017-07-23 04:00] LABS: ADD UMIC YES; UR ASCORBIC ACID NEGATIVE (NEGATIVE); UR BACTERIA FEW /HPF (NONE SEEN); UR BILIRUBIN (Dip) NEGATIVE (NEGATIVE); UR BLOOD (Dip) NEGATIVE (NEGATIVE); UR CLARITY CLEAR (CLEAR); UR COLOR YELLOW (YELLOW); UR GLUCOSE (Dip) 1+ mg/dL (NEGATIVE); UR KETONES (Dip) NEGATIVE (NEGATIVE); UR LEUKOCYTE ESTERASE (Dip) TRACE Leu/ul (NEGATIVE); UR NITRITE (Dip) NEGATIVE (NEGATIVE); UR RBC 1 /HPF (0-5); UR SPECIFIC GRAVITY (Dip) 1.006 (1.003-1.030); UR SQUAMOUS EPITHELIAL CELL FEW /HPF (FEW); UR TOTAL PROTEIN (Dip) 2+ mg/dl (NEGATIVE); UR UROBILINOGEN (Dip) NEGATIVE (NEGATIVE); UR WBC 3 /HPF (0-5)
== END 2017-07-23 05:07 | disposition home or self-care (01) ==
LOC: E/R 00:40
DX: R10.13 Epigastric pain (principal); I10 Essential (primary) hypertension; I50.9 Heart failure, unspecified; Z79.4 Long term (current) use of insulin; Z79.82 Long term (current) use of aspirin
CPT/HCPCS: 36415; 71045; 74176; 80053; 81001; 83690; 83880; 84484; 85025; 96374; 96375; 99285-25

== ENCOUNTER 2017-07-24 21:06 | Emergency (ER) | payer MEDICARE, OTHER ==
[2017-07-24] MEDS: ACETAMINOPHEN 325 MG TAB PO (22:12)
[2017-07-24] MEDS: morphine 4 MG/ML VIAL IV (22:14)
[2017-07-24] MEDS: ONDANSETRON 4 MG INJ IV (22:14)
[2017-07-24] MEDS: PIPER-TAZO 3.375 GM IV (PMX) 100 ML IVPB (22:18)
[2017-07-24 22:25] LABS: ADD MAN DIFF? NO
[2017-07-24 22:28] LABS: ABNORMAL IP MESSAGE 1; BASOPHILS % 0.1 % (0.0-2.0); EOSINOPHILS # 0.1 10^3/ul (0.0-0.5); EOSINOPHILS % 0.9 % (0.0-7.0); HEMATOCRIT 27.5 % (37.0-47.0); HEMOGLOBIN 8.7 g/dl (12.0-16.0); LYMPHOCYTES # 0.2 10^3/ul (0.8-2.9); LYMPHOCYTES % 2.2 % (15.0-51.0); MEAN CORPUSCULAR HGB CONC 31.6 g/dl (32.0-37.0); MEAN CORPUSCULAR VOLUME 94.8 fl (82.0-101.0); MEAN PLATELET VOLUME 11.7 fl (7.4-10.4); MONOCYTE # 0.1 10^3/ul (0.3-0.9); MONOCYTES % 1.5 % (0.0-11.0); NEUTROPHIL # 6.4 10^3/ul (1.6-7.5); NEUTROPHILS % 94.7 % (39.0-77.0); PLATELET COUNT 166 10^3/UL (140-415); POSITIVE DIFF @See below; RED CELL DISTRIBUTION WIDTH 14.5 % (11.5-14.5)
[2017-07-24 22:28] LABS: WHITE BLOOD COUNT 6.8 10^3/ul (4.8-10.8)
[2017-07-24 22:47] LABS: ALANINE AMINOTRANSFERASE 660 IU/L (13-69); ALBUMIN 3.5 g/dl (3.3-4.9); ALBUMIN/GLOBULIN RATIO 0.97; ALKALINE PHOSPHATASE 1096 IU/L (42-121); ANION GAP 13 (8-16); ASPARTATE AMINO TRANSFERASE 565 IU/L (15-46); BILIRUBIN,INDIRECT 0.6 mg/dl (0-1.1); BILIRUBIN,TOTAL 0.6 mg/dl (0.2-1.3); BLOOD UREA NITROGEN 62 mg/dl (7-20); CALCIUM 9.3 mg/dl (8.4-10.2); CARBON DIOXIDE 28 mmol/L (21-31); CHLORIDE 102 mmol/L (97-110); CREATININE 2.74 mg/dl (0.44-1.00); GLUCOSE 111 mg/dl (70-220); POTASSIUM 4.3 mmol/L (3.5-5.1); SODIUM 139 mmol/L (135-144); TOTAL PROTEIN 7.1 g/dl (6.1-8.1)
[2017-07-24 22:48] LABS: INR 0.92; PARTIAL THROMBOPLASTIN TIME 27.7 Sec (25.0-35.0); PROTIME 12.4 Sec (11.9-14.9)
[2017-07-24 23:00] LABS: LIPASE 84 U/L (23-300)
[2017-07-24] MEDS: SODIUM CHLORIDE 0.9% 1L BAG IV* (23:24)
[2017-07-25 00:12] LABS: LACTIC ACID 0.6 mmol/L (0.5-2.0)
== END 2017-07-25 02:29 | disposition short-term general hospital (02) ==
LOC: E/R 07-25 02:29
DX: K80.50 Calculus of bile duct without cholangitis or cholecystitis without obstruction (principal); R50.9 Fever, unspecified; R65.20 Severe sepsis without septic shock; A41.9 Sepsis, unspecified organism; I10 Essential (primary) hypertension; E11.9 Type 2 diabetes mellitus without complications; N19 Unspecified kidney failure; I50.9 Heart failure, unspecified; Z79.4 Long term (current) use of insulin; Z79.82 Long term (current) use of aspirin
CPT/HCPCS: 36415; 71045; 76705; 80053; 83605; 83690; 84484; 85025; 85610; 85730; 87040; 93005; 96374; 96375; 99291-25